=== PATIENT | male | born 1960 | race Caucasian/White ===

== ENCOUNTER 2017-12-05 19:18 | Observation (INO) ==
[2017-12-05] MEDS ORDERED: *HR* HYDROcodone/Acet 5/325 mg TABLET PO ONE (20:04)
[2017-12-05 20:57] LABS: Eosinophils % 1.2 %; Hemoglobin 11.5 g/dL (12.9-16.9); Lymphocytes % 18.1 %
[2017-12-05 20:59] LABS: Basophils # 0.1 K/mcL (0.0-0.2); Basophils % 0.7 %; Eosinophils # 0.1 K/mcL (0.0-0.6); Immature Granulocytes % 0.4 % (0-4); Immature Platelets 6.3 % (1.1-6.1); Lymphocytes # 1.5 K/mcL (0.6-4.6); Mean Corpuscular HGB Conc 34.8 g/dL (31.6-35.5); Mean Corpuscular Hemoglobin 31.2 pg (28.0-33.3); Mean Corpuscular Volume 89.4 fL (83.0-100.0); Mean Platelet Volume 11.5 fL (9.4-12.4); Monocytes # 0.8 K/mcL (0.0-1.3); Monocytes % 9.3 %; Red Blood Count 3.69 M/mcL (4.19-5.50); Red Cell Distribution Width 14.6 % (11.5-14.5); Segmented Neutrophils % 70.3 %
[2017-12-05 21:01] LABS: Platelet Count 51 K/mcL (140-400)
[2017-12-05 21:14] LABS: BUN/Creatinine Ratio 11 (6-26); Blood Urea Nitrogen 7 mg/dL (6-20); C-Reactive Protein 6 mg/L (Less than 10); Calcium 8.2 mg/dL (8.6-10.3); Carbon Dioxide 25 mEq/L (23-29); Chloride 102 mEq/L (98-107); Glucose 350 mg/dL (70-105); Osmolality,Calculated 286 (280-300); Potassium 3.5 mEq/L (3.5-5.1); Sodium 132 mEq/L (136-145); Uric Acid 2.6 mg/dL (2.3-7.6); eGFR For African Americans > 60 (> 60); eGFR For Non-African Americans > 60 (> 60)
[2017-12-05 21:16] LABS: Estimated Average Glucose 174 mg/dl; Hemoglobin A1C 7.7 %
--- NOTE | 2017-12-05 22:50 | Emergency Department Note ---
Disposition Clinical Impression: Right ankle swelling Right ankle pain Qualifiers: Chronicity: acute Qualified Code(s): M25.571 - Pain in right ankle and joints of right foot Cellulitis Qualifiers: Site of cellulitis: extremity Site of cellulitis of extremity: lower extremity Laterality: right Qualified Code(s): L03.115 - Cellulitis of right lower limb Disposition: Home, Self-Care Condition: Good Referrals: Woody Torres DO [Primary Care Provider] - Forms: ED Satisfaction Letter Time of Disposition: 23:03 Extremity Problem HPI - General Chief complaint: ED Extremity Injury, Lower Stated complaint: Right ankle pain Time Seen by Provider: 12/05/17 20:02 Source: patient Limitations: no limitations Nursing Notes Reviewed: Yes Vital Signs Reviewed: Yes - History of Present Illness Pt Subjective Complaint: extremity pain Onset (ago): day(s) (3) Consistency: Worsening Injury Location: right Pain Scale: 10 Quality: aching Radiation: none Improves with: nothing Worsens with: range of motion, weight bearing Associated symptoms: Reports: change in appearance, swelling, redness. Denies: chest pain, shortness of breath, back pain, bowel/bladder symptoms, fever Context: other (h/o of IDDM) - Related Data Home Medications Medication Instructions Recorded Confirmed Insulin ASPART [Novolog Flexpen] 12 unit SQ TIDWM 07/25/16 09/07/16 Insulin Glargine,Hum.rec.anlog 30 unit SQ HS 07/25/16 09/07/16 [Lantus Solostar] Allergies Allergy/AdvReac Type Severity Reaction Status Date / Time No Known Allergies Allergy Verified 12/25/15 19:50 All systems ED: reviewed and negative except as stated. Review of Systems: As Per HPI Constitutional: Denies: fever, chills, weakness Eyes: Denies: vision change ENT ED: Denies: throat pain Cardiovascular: Denies: chest pain, palpitations Respiratory: Denies: dyspnea Gastrointestinal: Denies: abdominal pain, nausea, vomiting Genitourinary: Denies: dysuria Musculoskeletal: Denies: back pain, neck pain Integumentary: Denies: rash Neurological: Denies: headache, weakness, numbness, paresthesias Endocrine: Denies: fatigue Hematological/Lymphatic: Denies: easy bleeding Allergic/Immunologic: Denies: facial swelling Past Medical History - Past Medical History Medical history: Reports: cancer, diabetes, other Surgical history: Reports: orthopedic, other, other Psychiatric history: Reports: no psych history - Social History Smoking Status: Never smoker Smokeless Tobacco Status: Yes (daily) Alcohol use: Reports: none Drug use: Reports: none Physical Exam - General Limitations: no limitations General appearance: alert, in no apparent distress - Head Head exam: normocephalic - Eye Eye exam: Present: EOMI. Absent: conjunctival injection - ENT ENT exam: mucous membranes moist - Neck Neck exam: Present: full ROM - Chest Chest inspection: Present: symmetric chest wall rise - Respiratory Respiratory exam: Absent: respiratory distress - Cardiovascular Cardiovascular exam: Present: normal rhythm - Abdominal Exam Abdominal exam: Present: soft, Non-Tender - Extremities Exam Extremities exam: Present: normal capillary refill - Expanded Lower Extremity Exam Hip/Pelvis exam: Present: full ROM Upper leg exam: Present: full ROM Knee exam: Present: normal inspection, full ROM, knee extension intact. Absent : tenderness, swelling Lower leg exam: Present: normal inspection, full ROM, Homans' sign, Achilles tendon intact Ankle exam: Present: full ROM, swelling (right), erythema (right). Absent: abrasion, laceration, deformity Foot/toe exam: Present: normal inspection, full ROM. Absent: tenderness at base of 5th metatarsal Neurovascular/Tendon exam: Absent: pulse deficit, motor deficit, sensory deficit , tendon deficit Gait: not tested/not observed - Back Exam Back exam: Present: full ROM - Neurological Exam Neurological exam: Present: alert - Psychiatric Psychiatric exam: Present: normal affect, normal mood - Skin Skin exam: Present: warm, dry, intact, normal color. Absent: rash, cyanosis, diaphoresis Course Course Narrative: 57yo IDDM2 male presents with complaint of atraumatic right ankle pain. He states his pain has been slowly worsening for the past 3 days, and today it was to the point where he is unable to bear weight. He does mention he was shoveling 4 days ago, but denies any twisting, direct trauma at that time. He denies any fevers, chills, numbness, tingling, history of gout. Patient seen and examined. Swellilng around right ankle, with erythema worse on medial aspect. No tenderness over base of fifth metatarsal. No noted deformity abrasions or lacerations. Normal distal pulses. Achilles intact, no calf pain. Pt has Pain and swelling that appears Atraumatic. Uric acid, Septic joint workup initiated, and imaging ordered. MRI reviewed, last A1c was 7.2 approx 6 months ago but 9.2% approx 1 year ago. will repeat tonight. analgesics ordered. - Reevaluation(s) Reevaluation #1: Patient was discussed with Dr. Hutson, who also had face time with patient, reviewed lab work. Concerning for cellulitis, due to patient's history of diabetes, he has advised for inpatient treatment IV antibiotics. We will plan for hospitalist admission. IV vanc and zosyn ordered Time: 23:00 Reevaluation #2: Pt discussed with and accepted by hospitalist Dr. Blank. Time: 23:25 Vital Signs Temperature 99.4 F 12/05/17 19:28 Pulse Rate 93 12/05/17 19:28 Respiratory Rate 18 12/05/17 19:28 Blood Pressure 125/72 12/05/17 19:28 O2 Sat by Pulse Oximetry 99 12/05/17 19:28 Temperature 99.4 F 12/05/17 19:28 Pulse Rate 82 12/05/17 23:46 Respiratory Rate 12 12/05/17 23:46 Blood Pressure 101/77 12/05/17 23:46 O2 Sat by Pulse Oximetry 99 12/05/17 23:46 Oxygen Delivery Oxygen Delivery Room Air Extremity Problem, [place] - [facility] Narrative Medical decision making narrative: Patient was discussed with Dr. Hutson, who also had face time with patient, and agreed with workup and disposition. 57-year-old male diabetic presents with atraumatic right ankle pain, pain, and erythema worsening over the past days. Workup concerning for cellulitis. IV abx started here, and patient was accessed did to hospitalist for inpatient management and further evaluation. Ankle X-Ray 12/05/17 20:02 IMPRESSION: Mild circumferential soft tissue swelling. No radiographic evidence of osteomyelitis. No acute fracture or dislocation. D/ / Nicholas Raya MD / Nicholas Raya MD Interpreting Provider: Nicholas Raya MD Laboratory Tests 12/05/17 12/05/17 12/05/17 20:29 20:29 20:29 WBC 8.5 RBC 3.69 L Hgb 11.5 L Hct 33.0 L MCV 89.4 MCH 31.2 MCHC 34.8 RDW 14.6 H Plt Count 51 L MPV 11.5 Immature Gran % 0.4 Seg Neutrophils % 70.3 Lymphocytes % 18.1 Monocytes % 9.3 Eosinophils % 1.2 Basophils % 0.7 Neutrophils # 6.0 Lymphocytes # 1.5 Monocytes # 0.8 Eosinophils # 0.1 Basophils # 0.1 Immature Plt Fraction 6.3 H ESR 27 H Sodium 132 L Potassium 3.5 Chloride 102 Carbon Dioxide 25 BUN 7 Creatinine 0.66 L Est GFR ( Amer) > 60 Est GFR (Non-Af Amer) > 60 BUN/Creatinine Ratio 11 Glucose 350 H Est Mean Plasma Glucose Hemoglobin A1c Calculated Osmolality 286 Lactic Acid Uric Acid 2.6 Calcium 8.2 L C-Reactive Protein 6 12/05/17 12/05/17 20:29 20:29 WBC RBC Hgb Hct MCV MCH MCHC RDW Plt Count MPV Immature Gran % Seg Neutrophils % Lymphocytes % Monocytes % Eosinophils % Basophils % Neutrophils # Lymphocytes # Monocytes # Eosinophils # Basophils # Immature Plt Fraction ESR Sodium Potassium Chloride Carbon Dioxide BUN Creatinine Est GFR ( Amer) Est GFR (Non-Af Amer) BUN/Creatinine Ratio Glucose Est Mean Plasma Glucose 174 Hemoglobin A1c 7.7 H Calculated Osmolality Lactic Acid 1.2 Uric Acid Calcium C-Reactive Protein - Lab Data Lab results reviewed: Yes I reviewed the patient's lab results. Result diagrams: 12/05/17 20:29 12/05/17 20:29 Lab Results 12/05/17 12/05/17 12/05/17 Range/Units 20:29 20:29 20:29 WBC 8.5 (4.3-11.1) K/mcL RBC 3.69 L (4.19-5.50) M/mcL Hgb 11.5 L (12.9-16.9) g/dL Hct 33.0 L (37.5-50.1) % MCV 89.4 (83.0-100.0) fL MCH 31.2 (28.0-33.3) pg MCHC 34.8 (31.6-35.5) g/dL RDW 14.6 H (11.5-14.5) % Plt Count 51 L (140-400) K/mcL MPV 11.5 (9.4-12.4) fL Immature Gran % 0.4 (0-4) % Seg Neutrophils % 70.3 % Lymphocytes % 18.1 % Monocytes % 9.3 % Eosinophils % 1.2 % Basophils % 0.7 % Neutrophils # 6.0 (1.6-8.9) K/mcL Lymphocytes # 1.5 (0.6-4.6) K/mcL Monocytes # 0.8 (0.0-1.3) K/mcL Eosinophils # 0.1 (0.0-0.6) K/mcL Basophils # 0.1 (0.0-0.2) K/mcL Immature Plt Fraction 6.3 H (1.1-6.1) % ESR 27 H (0-10) mm/hr Sodium 132 L (136-145) mEq/L Potassium 3.5 (3.5-5.1) mEq/L Chloride 102 (98-107) mEq/L Carbon Dioxide 25 (23-29) mEq/L BUN 7 (6-20) mg/dL Creatinine 0.66 L (0.70-1.30) mg/dL Est GFR ( Amer) > 60 (> 60) Est GFR (Non-Af Amer) > 60 (> 60) BUN/Creatinine Ratio 11 (6-26) Glucose 350 H (70-105) mg/dL Est Mean Plasma Glucose mg/dl Hemoglobin A1c ( - 5.6) % Calculated Osmolality 286 (280-300) Lactic Acid (0.5-2.2) mmol/L Uric Acid 2.6 (2.3-7.6) mg/dL Calcium 8.2 L (8.6-10.3) mg/dL C-Reactive Protein 6 (Less than 10) mg/L 12/05/17 12/05/17 Range/Units 20:29 20:29 WBC (4.3-11.1) K/mcL RBC (4.19-5.50) M/mcL Hgb (12.9-16.9) g/dL Hct (37.5-50.1) % MCV (83.0-100.0) fL MCH (28.0-33.3) pg MCHC (31.6-35.5) g/dL RDW (11.5-14.5) % Plt Count (140-400) K/mcL MPV (9.4-12.4) fL Immature Gran % (0-4) % Seg Neutrophils % % Lymphocytes % % Monocytes % % Eosinophils % % Basophils % % Neutrophils # (1.6-8.9) K/mcL Lymphocytes # (0.6-4.6) K/mcL Monocytes # (0.0-1.3) K/mcL Eosinophils # (0.0-0.6) K/mcL Basophils # (0.0-0.2) K/mcL Immature Plt Fraction (1.1-6.1) % ESR (0-10) mm/hr Sodium (136-145) mEq/L Potassium (3.5-5.1) mEq/L Chloride (98-107) mEq/L Carbon Dioxide (23-29) mEq/L BUN (6-20) mg/dL Creatinine (0.70-1.30) mg/dL Est GFR ( Amer) (> 60) Est GFR (Non-Af Amer) (> 60) BUN/Creatinine Ratio (6-26) Glucose (70-105) mg/dL Est Mean Plasma Glucose 174 mg/dl Hemoglobin A1c 7.7 H ( - 5.6) % Calculated Osmolality (280-300) Lactic Acid 1.2 (0.5-2.2) mmol/L Uric Acid (2.3-7.6) mg/dL Calcium (8.6-10.3) mg/dL C-Reactive Protein (Less than 10) mg/L - Radiology Data Radiology results reviewed: Yes I reviewed the patient's radiology results.
--- NOTE | 2017-12-05 23:28 | Internal Med History&Physical ---
Date of Encounter: 12/05/17 Time of Encounter: 23:26 Internal Medicine - H&P: HPI Chief complaint: ankle swelling Admitted From: Emergency Dept Plans for Post Hospital Care: Home History of present illness: Mr. Slade is a 57 year old male with diabetes, thrombocytopenia, hepatitis C,, arthritis, septic right elbow is in 2016 status post arthrotomy with lavage who presents with pain, swelling, redness in the right ankle area that has been going on for about 3 days or so. Has been worsening. No trauma. He has not been able to her weight on it. Denies any fevers or chills. Labs were done in the ED that showed no leukocytosis and platelets were 51 which is consistent with his known thrombocytopenia. Sodium was 132. Normal kidney function. Glucose elevated at 350. A1c was 7.7. Uric acid and CRP and ESR were checked with only ESR mildly elevated at 27. An x-ray of the right ankle was checked which showed soft tissue swelling with no evidence was to mellitus. Given the patient's history of previous septic joint, the ED felt that the patient needed to be admitted for IV antibiotics. He was given IV Zosyn and vancomycin in the ED. Denies headache, blurry vision, chest pain, shortness breath, abdominal pain, diarrhea, constipation, urinary symptoms, or neurological symptoms. Past Med Surg Social Fam HX - Past Medical History Medical history: cancer, diabetes, other Additional medical history: liver cirrhosis Psychiatric history: no psych history - Past Surgical History Surgical History: orthopedic, other, other Additional surgical history: elbow surgery and eye surgery, colonoscopy - Social History Smoking Status: Never smoker Smokeless Tobacco Status: Yes (daily) Alcohol use: none Drug use: none - Family History Mother Adopted: No Family Member Ethnicity: Non- Living Status: Still Living Hx Family Cardiac Disorders: No Hx Family Respiratory Disorders: Yes (sleep apnea) Hx Family Cancer: No Hx Family GI Disorders: Yes (hernia) Hx Family Endocrine Disorder: Yes (diabetic) Hx Family Neuromuscular Disorders: No Hx Family Neurologic Disorders: No Hx Family HEENT Disorders: No Hx Family Autoimmune Disorders: No Internal Medicine - H&P: Meds metFORMIN [Glucophage] 500 mg PO TID 12/04/15 [History] Aspirin [Lo-Dose Aspirin EC] 81 mg PO DAILY 06/16/16 [History] Lisinopril [Zestril] 2.5 mg PO DAILY 06/16/16 [History] OxyCODONE Immed Rel [Roxicodone 5 MG] 5 mg PO BID PRN #60 tablet 06/16/16 [Rx] Glucagon,Human Recombinant [Glucagon Emergency Kit] 1 mg IJ AD 07/25/16 [History ] Insulin ASPART [Novolog Flexpen] 12 unit SQ TIDWM 07/25/16 [History] Insulin Glargine,Hum.rec.anlog [Lantus Solostar] 30 unit SQ HS 07/25/16 [History ] Gabapentin [Neurontin] 600 mg PO HS 09/07/16 [History] Promethazine [Phenergan] 12.5 mg PO Q8HR #90 tablet 01/17/17 [Rx] Sennosides/Docusate Sodium [Senna-S Tablet] 1 each PO DAILY #30 tablet 01/17/17 [Rx] 3 Allergy/AdvReac Type Severity Reaction Status Date / Time No Known Allergies Allergy Verified 12/25/15 19:50 All Systems PM: A 10-system review of systems was performed and is negative for pertinent findings except as documented above in the HPI. Review of systems: All systems reviewed are negative except for as mentioned above - Constitutional Vitals: Temp Pulse Resp BP Pulse Ox 99.4 F 93 18 125/72 99 12/05/17 19:28 12/05/17 19:28 12/05/17 19:28 12/05/17 19:28 12/05/17 19:28 Exam: GEN: NAD HEENT: AT, NC, No cyanosis, oral mucosa is moist, No JVD Lymphatics: No lymphadenoapthy Eyes: Extrocular muscles intact, anicteric CVS:RRR. S1, S2, No m/r/g RESP: CTAB ABD: Soft, NT, ND, +BS EXT: Right ankle swelling and erythema with tenderness to palpation noted., No rashes, 2+ DP NEURO: Nonfocal, CN II-XII intact, No focal motor or sensory deficits Psych: Cooperative, Not anxious or depressed Internal Med - H&P Results - Labs CBC & Chem 7: 12/05/17 20:29 12/05/17 20:29 Labs: Short CBC 12/05/17 Range/Units 20:29 WBC 8.5 (4.3-11.1) K/mcL Hgb 11.5 L (12.9-16.9) g/dL Hct 33.0 L (37.5-50.1) % Plt Count 51 L (140-400) K/mcL Neutrophils # 6.0 (1.6-8.9) K/mcL BMP 12/05/17 20:29 Sodium 132 L Potassium 3.5 Chloride 102 Carbon Dioxide 25 BUN 7 Creatinine 0.66 L Glucose 350 H Calcium 8.2 L - Impressions ITS Impressions Ankle X-Ray 12/05/17 20:02 IMPRESSION: Mild circumferential soft tissue swelling. No radiographic evidence of osteomyelitis. No acute fracture or dislocation. D/ / Nicholas Raya MD / Nicholas Raya MD Interpreting Provider: Nicholas Raya MD - Assessment and plan (1) Cellulitis Current Visit: Yes Status: Acute Assessment and plan: We will place patient on IV vancomycin for now. Follow-up on blood cultures. We will annmarie the area to monitor progress. Qualifiers: Site of cellulitis: extremity Site of cellulitis of extremity: lower extremity Laterality: right Qualified Code(s): L03.115 - Cellulitis of right lower limb (2) HTN (hypertension) Current Visit: Yes Status: Acute Assessment and plan: We will resume the patient on his home antihypertensives. Qualifiers: Hypertension type: essential hypertension Qualified Code(s): I10 - Essential (primary) hypertension (3) Thrombocytopenia Current Visit: No Status: Acute Assessment and plan: Chronic. We will monitor. (4) Diabetes Current Visit: No Status: Chronic Assessment and plan: We will place the patient on insulin sliding scale and home basal insulin. Accu -Cheks. Qualifiers: Diabetes mellitus type: type 2 Diabetes mellitus equipment operator intermodal yard insulin use: without equipment operator intermodal yard use Diabetes mellitus complication status: without complication Qualified Code(s): E11.9 - Type 2 diabetes mellitus without complications (5) DVT prophylaxis Current Visit: No Status: Acute Assessment and plan: SCDs - Time Spent With Patient Total time spent is greater than 50% in coordination of care (as documented) at patient's floor/unit and/or counseling patient:
[2017-12-05] MEDS ORDERED: Piperacillin/Tazobactam 3.375 GM in 0.9 % Sodium Chloride Mini Bag 100 ML IVPB ONE (23:29)
[2017-12-05] MEDS ORDERED: *HR* Dextrose 50 % in Water (Syg) 50 ML SYRINGE IVP PRN (23:43)
[2017-12-05] MEDS ORDERED: D5% in Water 1,000 ML IVC PRN (23:43)
[2017-12-05] MEDS ORDERED: Dextrose Gel 15 GM/37.5 ML TUBE PO PRN ×2 (23:43)
[2017-12-05] MEDS ORDERED: Naloxone 0.4 MG/ML INJ IVP PRN (23:44)
[2017-12-05] MEDS ORDERED: Acetaminophen 325 MG TABLET PO PRN (23:44)
[2017-12-06] MEDS: *HR* OxyCODONE Immed Rel 5 MG TABLET PO PRN ×3 (00:16→19:14)
[2017-12-06 04:37] LABS: Basophils # 0.1 K/mcL (0.0-0.2); Basophils % 0.8 %; Eosinophils # 0.3 K/mcL (0.0-0.6); Eosinophils % 3.6 %; Hematocrit 30.3 % (37.5-50.1); Hemoglobin 10.5 g/dL (12.9-16.9); Immature Granulocytes % 0.4 % (0-4); Immature Platelets 6.7 % (1.1-6.1); Lymphocytes # 1.8 K/mcL (0.6-4.6); Lymphocytes % 24.5 %; Mean Corpuscular HGB Conc 34.7 g/dL (31.6-35.5); Mean Corpuscular Volume 89.4 fL (83.0-100.0); Mean Platelet Volume 12.1 fL (9.4-12.4); Monocytes # 0.7 K/mcL (0.0-1.3); Monocytes % 10.3 %; Red Blood Count 3.39 M/mcL (4.19-5.50); Red Cell Distribution Width 14.6 % (11.5-14.5); Segmented Neutrophils % 60.4 %
[2017-12-06 04:39] LABS: Neutrophils # 4.4 K/mcL (1.6-8.9); Platelet Count 42 K/mcL (140-400)
[2017-12-06 04:48] LABS: BUN/Creatinine Ratio 13 (6-26); Blood Urea Nitrogen 8 mg/dL (6-20); Calcium 7.6 mg/dL (8.6-10.3); Carbon Dioxide 27 mEq/L (23-29); Chloride 104 mEq/L (98-107); Glucose 305 mg/dL (70-105); Magnesium 1.6 mg/dL (1.6-2.6); Osmolality,Calculated 288 (280-300); Potassium 3.4 mEq/L (3.5-5.1); Sodium 134 mEq/L (136-145); eGFR For African Americans > 60 (> 60); eGFR For Non-African Americans > 60 (> 60)
[2017-12-06] MEDS: Insulin LISPRO 300 UNITS/3 ML VIAL SQ SCH ×4 (08:34→21:23)
[2017-12-06] MEDS ORDERED: Potassium Chloride 40 MEQ, Lidocaine 1% 2 ML in D5% in Water 500 ML IVPB ONE (10:13)
--- NOTE | 2017-12-06 12:30 | Internal Med Progress Note ---
Date of Encounter: 12/06/17 Time of Encounter: 10:15 - Assessment and plan (1) Cellulitis Current Visit: Yes Status: Acute Assessment and plan: Possible etiology could be community acquired MRSA, Staphylococcus aureus or streptococcus. Gram-negative organisms are slightly. Plan Continue broad-spectrum antibody coverage with vancomycin and Zosyn Follow cultures sent from the ED Qualifiers: Site of cellulitis: extremity Site of cellulitis of extremity: lower extremity Laterality: right Qualified Code(s): L03.115 - Cellulitis of right lower limb (2) Diabetes Current Visit: No Status: Chronic Assessment and plan: We will place the patient on insulin sliding scale and home basal insulin. Accu -Cheks. Blood sugar is high but he did not receive basal coverage last night. 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 Likely related to liver disease. (4) HTN (hypertension) Current Visit: Yes Status: Acute Assessment and plan: We will resume the patient on his home antihypertensives. Qualifiers: Hypertension type: essential hypertension Qualified Code(s): I10 - Essential (primary) hypertension (5) Hepatitis C infection Current Visit: Yes Status: Chronic Qualifiers: Qualified Code(s): B19.20 - Unspecified viral hepatitis C without hepatic coma (6) Cirrhosis Current Visit: Yes Status: Chronic Qualifiers: Qualified Code(s): K74.60 - Unspecified cirrhosis of liver (7) DVT prophylaxis Current Visit: No Status: Acute Assessment and plan: SCDs - Time Spent With Patient Total time spent is greater than 50% in coordination of care (as documented) at patient's floor/unit and/or counseling patient: 25 - 35 minutes - Subjective Interval history: Still concern about swelling and erythema of the right ankle. No new complaints. - Constitutional Vitals: Temp Pulse Resp BP Pulse Ox 97.9 F 76 16 121/71 99 12/06/17 11:26 12/06/17 11:26 12/06/17 11:26 12/06/17 11:26 12/06/17 11:26 Exam: Physical exam Gen: Comfortable, laying in bed, in no visible distress HEENT: Normocephalic, atraumatic. No conjunctival icterus. Moist oral mucosa. Neck: Supple Lungs: Clear to auscultation, no foreign sounds Heart: Normal S1-S2, no murmurs rubs or gallops Abdomen: Normoactive bowel sounds, no guarding rigidity or tenderness Extremities: No edema clubbing or cyanosis Neuro: Alert oriented 3, no focal deficits Skin: Right ankle edema and erythema at the medial malleolus area site was marked Internal Medicine: Result - Labs CBC & Chem 7: 12/06/17 03:53 12/06/17 03:53 Labs: Short CBC 12/06/17 Range/Units 03:53 WBC 7.2 (4.3-11.1) K/mcL Hgb 10.5 L (12.9-16.9) g/dL Hct 30.3 L (37.5-50.1) % Plt Count 42 L (140-400) K/mcL Neutrophils # 4.4 (1.6-8.9) K/mcL BMP 12/06/17 03:53 Sodium 134 L Potassium 3.4 L Chloride 104 Carbon Dioxide 27 BUN 8 Creatinine 0.60 L Glucose 305 H Calcium 7.6 L Consult Discharge Plan - Plan Referrals: Woody Torres DO [Primary Care Provider] -
[2017-12-06] MEDS: Piperacillin/Tazobactam 3.375 GM in 0.9 % Sodium Chloride Mini Bag 100 ML IVPB SCH ×2 (14:20→21:24)
[2017-12-06] MEDS: Insulin DETEMIR 100 UNIT/ML X5UNITS SQ SCH (15:11)
[2017-12-06] MEDS ORDERED: Piperacillin/Tazobactam 3.375 GM in 0.9 % Sodium Chloride Mini Bag 100 ML IVPB ONE (23:00)
[2017-12-07] MEDS: *HR* OxyCODONE Immed Rel 5 MG TABLET PO PRN ×4 (01:35→20:26)
[2017-12-07] MEDS: Piperacillin/Tazobactam 3.375 GM in 0.9 % Sodium Chloride Mini Bag 100 ML IVPB SCH ×3 (05:06→19:58)
[2017-12-07 07:00] LABS: Immature Granulocytes % 0.5 % (0-4); Red Blood Count 3.55 M/mcL (4.19-5.50)
[2017-12-07 07:02] LABS: Basophils # 0.1 K/mcL (0.0-0.2); Basophils % 0.8 %; Eosinophils # 0.2 K/mcL (0.0-0.6); Eosinophils % 3.2 %; Hematocrit 31.9 % (37.5-50.1); Hemoglobin 10.8 g/dL (12.9-16.9); Lymphocytes % 17.4 %; Mean Corpuscular HGB Conc 33.9 g/dL (31.6-35.5); Mean Corpuscular Hemoglobin 30.4 pg (28.0-33.3); Mean Corpuscular Volume 89.9 fL (83.0-100.0); Mean Platelet Volume 11.2 fL (9.4-12.4); Monocytes # 0.6 K/mcL (0.0-1.3); Monocytes % 10.6 %; Neutrophils # 4.1 K/mcL (1.6-8.9); Red Cell Distribution Width 14.5 % (11.5-14.5); Segmented Neutrophils % 67.5 %
[2017-12-07 07:11] LABS: Platelet Count 48 K/mcL (140-400)
[2017-12-07 07:22] LABS: BUN/Creatinine Ratio 11 (6-26); Blood Urea Nitrogen 7 mg/dL (6-20); Calcium 7.7 mg/dL (8.6-10.3); Carbon Dioxide 26 mEq/L (23-29); Chloride 105 mEq/L (98-107); Glucose 88 mg/dL (70-105); Magnesium 1.5 mg/dL (1.6-2.6); Osmolality,Calculated 277 (280-300); Potassium 3.6 mEq/L (3.5-5.1); Sodium 135 mEq/L (136-145); eGFR For African Americans > 60 (> 60); eGFR For Non-African Americans > 60 (> 60)
[2017-12-07] MEDS: Insulin LISPRO 300 UNITS/3 ML VIAL SQ SCH ×4 (07:54→21:10)
--- NOTE | 2017-12-07 09:48 | Internal Med Progress Note ---
Date of Encounter: 12/07/17 Time of Encounter: 10:00 - Assessment and plan (1) Cellulitis Current Visit: Yes Status: Acute Assessment and plan: Possible etiology could be community acquired MRSA, Staphylococcus aureus or streptococcus. Gram-negative organisms are slightly. Plan Continue broad-spectrum antibiotic coverage with vancomycin and Zosyn. Will consider deescalating tomorrow. Rash has not changed much, neither has swelling Follow cultures sent from the ED Qualifiers: Site of cellulitis: extremity Site of cellulitis of extremity: lower extremity Laterality: right Qualified Code(s): L03.115 - Cellulitis of right lower limb (2) Diabetes Current Visit: No Status: Chronic Assessment and plan: We will place the patient on insulin sliding scale and home basal insulin. Accu -Cheks. Blood sugar is high but he did not receive basal coverage last night. 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 Likely related to liver disease. (4) HTN (hypertension) Current Visit: Yes Status: Acute Assessment and plan: We will resume the patient on his home antihypertensives. Qualifiers: Hypertension type: essential hypertension Qualified Code(s): I10 - Essential (primary) hypertension (5) Hepatitis C infection Current Visit: Yes Status: Chronic Qualifiers: Qualified Code(s): B17.10 - Acute hepatitis C without hepatic coma (6) Cirrhosis Current Visit: Yes Status: Chronic Qualifiers: Qualified Code(s): K74.60 - Unspecified cirrhosis of liver (7) DVT prophylaxis Current Visit: No Status: Acute Assessment and plan: SCDs - Time Spent With Patient Total time spent is greater than 50% in coordination of care (as documented) at patient's floor/unit and/or counseling patient: 25 - 35 minutes - Subjective Interval history: No significant interval changes in his swelling or erythema of the right ankle .No new complaints. - Constitutional Vitals: Temp Pulse Resp BP Pulse Ox 97.8 F 85 16 124/73 98 12/07/17 06:52 12/07/17 06:52 12/07/17 06:52 12/07/17 06:52 12/07/17 06:52 Exam: Physical exam Gen: Comfortable, laying in bed, in no visible distress HEENT: Normocephalic, atraumatic. No conjunctival icterus. Moist oral mucosa. Neck: Supple Lungs: Clear to auscultation, no foreign sounds Heart: Normal S1-S2, no murmurs rubs or gallops Abdomen: Normoactive bowel sounds, no guarding rigidity or tenderness Extremities: No edema clubbing or cyanosis Neuro: Alert oriented 3, no focal deficits Skin: Right ankle edema and erythema at the medial malleolus area site was marked Internal Medicine: Result - Labs CBC & Chem 7: 12/07/17 06:33 12/07/17 06:33 Labs: Short CBC 12/07/17 Range/Units 06:33 WBC 6.0 (4.3-11.1) K/mcL Hgb 10.8 L (12.9-16.9) g/dL Hct 31.9 L (37.5-50.1) % Plt Count 48 L (140-400) K/mcL Neutrophils # 4.1 (1.6-8.9) K/mcL BMP 12/07/17 06:33 Sodium 135 L Potassium 3.6 Chloride 105 Carbon Dioxide 26 BUN 7 Creatinine 0.65 L Glucose 88 Calcium 7.7 L Consult Discharge Plan - Plan Referrals: Woody Torres DO [Primary Care Provider] -
[2017-12-07] MEDS: Insulin DETEMIR 100 UNIT/ML X5UNITS SQ SCH (20:26)
[2017-12-08] MEDS: *HR* OxyCODONE Immed Rel 5 MG TABLET PO PRN ×2 (03:55→12:32)
[2017-12-08] MEDS: Piperacillin/Tazobactam 3.375 GM in 0.9 % Sodium Chloride Mini Bag 100 ML IVPB SCH ×2 (03:58→12:45)
[2017-12-08 04:43] LABS: Basophils # 0.1 K/mcL (0.0-0.2); Basophils % 1.1 %; Eosinophils # 0.3 K/mcL (0.0-0.6); Eosinophils % 3.9 %; Hematocrit 30.7 % (37.5-50.1); Hemoglobin 10.4 g/dL (12.9-16.9); Immature Granulocytes % 0.3 % (0-4); Immature Platelets 6.4 % (1.1-6.1); Lymphocytes # 1.3 K/mcL (0.6-4.6); Lymphocytes % 20.8 %; Mean Corpuscular HGB Conc 33.9 g/dL (31.6-35.5); Mean Corpuscular Hemoglobin 29.9 pg (28.0-33.3); Mean Corpuscular Volume 88.2 fL (83.0-100.0); Mean Platelet Volume 11.4 fL (9.4-12.4); Monocytes % 10.1 %; Neutrophils # 4.1 K/mcL (1.6-8.9); Red Blood Count 3.48 M/mcL (4.19-5.50); Red Cell Distribution Width 14.5 % (11.5-14.5); Segmented Neutrophils % 63.8 %
[2017-12-08 04:47] LABS: Monocytes # 0.7 K/mcL (0.0-1.3); Platelet Count 54 K/mcL (140-400)
[2017-12-08 05:03] LABS: BUN/Creatinine Ratio 12 (6-26); Blood Urea Nitrogen 7 mg/dL (6-20); Calcium 7.4 mg/dL (8.6-10.3); Carbon Dioxide 26 mEq/L (23-29); Chloride 105 mEq/L (98-107); Glucose 162 mg/dL (70-105); Osmolality,Calculated 278 (280-300); Potassium 3.3 mEq/L (3.5-5.1); Sodium 133 mEq/L (136-145); eGFR For African Americans > 60 (> 60); eGFR For Non-African Americans > 60 (> 60)
[2017-12-08] MEDS: Insulin LISPRO 300 UNITS/3 ML VIAL SQ SCH ×2 (08:02→12:43)
--- NOTE | 2017-12-08 13:45 | Discharge Summary ---
<Adan Mullen - Last Filed: 12/08/17 14:03> Date of Encounter: 12/08/17 Time of Encounter: 08:15 - Discharge Diagnosis (1) Cellulitis Priority: Primary Status: Acute Qualifiers: Site of cellulitis: extremity Site of cellulitis of extremity: lower extremity Laterality: right Qualified Code(s): L03.115 - Cellulitis of right lower limb (2) Diabetes Priority: Secondary Status: Chronic Qualifiers: Diabetes mellitus type: type 2 Diabetes mellitus termite treater helper insulin use: without care home use Diabetes mellitus complication status: without complication Qualified Code(s): E11.9 - Type 2 diabetes mellitus without complications (3) Thrombocytopenia Priority: Secondary Status: Acute (4) HTN (hypertension) Priority: Secondary Status: Acute Qualifiers: Hypertension type: essential hypertension Qualified Code(s): I10 - Essential (primary) hypertension (5) Hepatitis C infection Priority: Secondary Status: Chronic (6) DVT prophylaxis Priority: Secondary Status: Acute (7) Cirrhosis Priority: Secondary Status: Chronic Qualifiers: Qualified Code(s): K74.60 - Unspecified cirrhosis of liver Hospital course: Mr. Slade is a 57 year old male with past medical history of type 2 Diabetes, Hep C, chronic thrombocytopenia, who was admitted for worsening right ankle swelling and erythema, non-traumatic, has had septic joint in the right elbow in the past that required arthrotomy/lavage. Patient was started on vancomycin and zosyn. Initial margins encompassed a 12cm by 11cm area over the medial malleolus. Margins and swelling reduced substantially over the hospital course. Podiatry was consulted today 12/08 regarding follow-up care. Plan is to have an outpatient appointment after 10 more days of PO Augmentin. He is stable for discharge today. Discharge discussed with: patient - Time Spent with Patient Total time spent providing and/or coordinating discharge services: Greater than 30 minutes - Discharge Medications Prescriptions: Amoxicillin/Clavulanate [Augmentin] 500 mg PO BIDWM 10 Days #20 tablet Home Medications: Insulin ASPART [Novolog Flexpen] 12 unit SQ TIDWM 07/25/16 [History] Insulin Glargine,Hum.rec.anlog [Basaglar Kwikpen U-100] 30 unit SQ HS 12/06/17 [ History] Amoxicillin/Clavulanate [Augmentin] 500 mg PO BIDWM 10 Days #20 tablet 12/08/17 [Rx] Allergies/Adverse Reactions: 3 Allergy/AdvReac Type Severity Reaction Status Date / Time No Known Allergies Allergy Verified 12/06/17 09:14 Date of admission: 12/06/17 00:44 Primary care physician: Woody Torres DO Consults: 12/08/17 09:49 Consult to Podiatry [CONS] Routine Consulting Provider: Pod[facility] Reason for Consult: admitted 12/05, R medial ankle cellulitis, on vanc/zosyn since admission, 20% improved margins, reduced swelling, no joint aspiration performed (bld culture prelim no growth so far), interested in possible discharge later this afternoon, de-escalate abx to Augmentin, with outpatient follow-up with Dr. Hernandez, thank you. Call Completed: Yes Discharging clinician: Adan Mullen Anticipated date of discharge: 12/08/17 - Constitutional Vitals: Temp Pulse Resp BP Pulse Ox 98.1 F 82 16 142/79 99 12/08/17 10:36 12/08/17 10:36 12/08/17 10:36 12/08/17 10:36 12/08/17 10:36 General appearance: Present: A&O X 3, no acute distress - Head Head exam: Present: atraumatic, normal inspection - Eye Eye exam: Present: EOMI, sclera anicteric - ENT ENT exam: Present: mucous membranes moist - Neck Neck exam general surgery: Present: full ROM. Absent: lymphadenopathy - Respiratory Respiratory exam: Present: CTAB. Absent: accessory muscle use - Cardiovascular Cardiovascular exam: Present: RRR. Absent: JVD, systolic murmur, tachycardia - GI/Abdominal GI/Abdominal exam: Absent: distended, firm, guarding - Extremities Exam Additional comments: Erythematous area measuring approximately 9cm by 8cm (80% of area of initial margins); no fluctuance or induration, trace swelling - Psychiatric Psychiatric exam: Present: normal affect, normal mood - Skin Additional comments: per extremities exam - Patient Status Disposition: Home, Self-Care Condition: Good Functional capacity at discharge: independent ambulation Overall status at discharge: patient is progressing back to baseline - Discharge Instructions Follow Up With: Cecelia Blakely WATCH DIAL PRINTER [Advanced Practice Nurse] - 12/15/17 9:00 am Bryon Hernandez DPM [Partnered Physician] - - Diet and Activity Activity: increase activity as tolerated Diet: advance to your usual diet - VTE Documentation of Mechanical Device: Intermittent pneumatic compression device <Khari Kan - Last Filed: 12/08/17 14:14> Date of Encounter: 12/08/17 - Discharge Diagnosis (1) Diabetes Status: Chronic Qualifiers: Diabetes mellitus type: type 2 Diabetes mellitus care home insulin use: without care home use Diabetes mellitus complication status: without complication Qualified Code(s): E11.9 - Type 2 diabetes mellitus without complications (2) Thrombocytopenia Status: Acute (3) DVT prophylaxis Status: Acute (4) Cellulitis Status: Acute Qualifiers: Site of cellulitis: extremity Site of cellulitis of extremity: lower extremity Laterality: right Qualified Code(s): L03.115 - Cellulitis of right lower limb (5) HTN (hypertension) Status: Acute Qualifiers: Hypertension type: essential hypertension Qualified Code(s): I10 - Essential (primary) hypertension (6) Hepatitis C infection Status: Chronic Qualifiers: Qualified Code(s): B19.20 - Unspecified viral hepatitis C without hepatic coma (7) Cirrhosis Status: Chronic Qualifiers: Qualified Code(s): K74.60 - Unspecified cirrhosis of liver Hospital course: Mr. Slade is a 57 year old male - Time Spent with Patient Total time spent providing and/or coordinating discharge services: Date of admission: 12/06/17 00:44 Primary care physician: Woody Torres DO Consults: 12/08/17 09:49 Consult to Podiatry [CONS] Routine Consulting Provider: Podiatry [facility] Reason for Consult: admitted 12/05, R medial ankle cellulitis, on vanc/zosyn since admission, 20% improved margins, reduced swelling, no joint aspiration performed (bld culture prelim no growth so far), interested in possible discharge later this afternoon, de-escalate abx to Augmentin, with outpatient follow-up with Dr. Hernandez, thank you. Call Completed: Yes - Constitutional Vitals: Temp Pulse Resp BP Pulse Ox 98.1 F 82 16 142/79 99 12/08/17 10:36 12/08/17 10:36 12/08/17 10:36 12/08/17 10:36 12/08/17 10:36 - Attending Attestation I examined this patient and my medical decision-making was reviewed with the Resident Physician Dr. Mullen. I agree with the documented findings, disposition and treatment plan as described except to the extent set forth below. Mr. Slade is a 57 year old male with past medical history of type 2 Diabetes, Hep C, chronic thrombocytopenia, who was admitted for worsening right ankle swelling and erythema. Pt was admitted here and started him on empirical abx Zosyn and Vancomycin. His cellulites improved now. Flasher Adjuster evaluated the pt and recommend to cont PO abx and f/u with them as an out pt. So will d/c him home today in stable condition. Gen: A, A, O x 3 Chest: Diminished BS b/l Ext: Improving erythema Rt ankle.. still has mild swelling in rt ankle.
[2017-12-08 14:28] VITALS: BP 120/64
[2017-12-08] MEDS ORDERED: Aminoglycoside Consult 1 EACH MC ONE (15:49)
--- NOTE | 2017-12-08 17:51 | Podiatry Consult Note ---
Date of Encounter: 12/08/17 Time of Encounter: 12:30 Assessment and Plan (1) Cellulitis Status: Acute Assessment #1: Cellulitis of the right foot secondary to likely trauma ecchymosis secondary to overuse complicated by diabetes #2: No evidence of septic ankle #3 no evidence of tendon rupture of the right foot or ankle #4: No clinical evidence of ulceration or abscess. Plan: #1 recommend post discharge by mouth antibiotics for a period of 10-14 days #2 daily cleansing of the right foot and ankle with mild soap and warm water dry clean sock daily inspection of the skin with observation for complications #3 we will follow up patient in clinic in 14 days postdischarge Qualifiers: Site of cellulitis: extremity Site of cellulitis of extremity: lower extremity Laterality: right Qualified Code(s): L03.115 - Cellulitis of right lower limb History of Present Illness Chief complaint: Red swollen right ankle HPI: Mr. Slade is a 57 year old male, admitted for cellulitis of the right foot and leg. Patient states he was using a shovel one week ago which she had not done several years. He noticed within 24-48 hours of using a shovel that he had increased swelling and discoloration of his right foot. Then by Monday he no significant increase in redness or swelling and pain presented to the ED has been admitted since that time on intravenous antibiotics concern for septic joint. He presents with no fever chills nausea vomiting today no chest pain no shortness of breath. Past Med Surg Social Fam HX - Past Medical History Medical history: cancer, cirrhosis, diabetes, other Additional medical history: Liver Cancer, thrombocytopenia Psychiatric history: no psych history - Past Surgical History Surgical History: orthopedic, other, other Additional surgical history: elbow surgery and eye surgery, colonoscopy - Social History Smoking Status: Never smoker Smokeless Tobacco Status: Yes (daily) Alcohol use: none Drug use: marijuana - Family History Father Living Status: Age at : 54 Cause of : Brain Cancer Hx Family Cancer: Yes Mother Adopted: No Family Member Ethnicity: Non- Living Status: Still Living Hx Family Cardiac Disorders: No Hx Family Respiratory Disorders: Yes (sleep apnea) Hx Family Cancer: No Hx Family GI Disorders: Yes (hernia) Hx Family Endocrine Disorder: Yes (DM) Hx Family Neuromuscular Disorders: No Hx Family Neurologic Disorders: No Hx Family HEENT Disorders: No Hx Family Autoimmune Disorders: No Medications and Allergies Insulin ASPART [Novolog Flexpen] 12 unit SQ TIDWM 07/25/16 [History] Insulin Glargine,Hum.rec.anlog [Basaglar Kwikpen U-100] 30 unit SQ HS 12/06/17 [ History] Amoxicillin/Clavulanate [Augmentin] 500 mg PO BIDWM 10 Days #20 tablet 12/08/17 [Rx] 3 Allergy/AdvReac Type Severity Reaction Status Date / Time No Known Allergies Allergy Verified 12/06/17 09:14 All Systems Reviewed: The remainder of the systems were reviewed and are negative. No chest pain nausea vomiting fever chills today. No bladder or bladder dysfunction. Patient does complain of some tingling and numbness of both feet and legs secondary to his history of diabetes Physical Exam - Constitutional Vitals: Temp Pulse Resp BP Pulse Ox 98.2 F 82 16 120/64 98 12/08/17 14:10 12/08/17 14:10 12/08/17 14:10 12/08/17 14:10 12/08/17 14:10 General appearance: average body habitus, cooperative, no acute distress - Expanded Lower Extremities Exam Foot/Toe exam: Present: calcaneal tenderness (Patient with non-blanchable erythema of the medial aspect of the right calcaneus and ankle approximately 8 cm in length 7 cm in width. No fluctuance. Tenderness to deep palpation only. No evidence of necrosis. No evidence of skin compromise. Exhibits a complete range of motion of the ankle and foot without pain or crepitus active and passive with without resistance. Patient can plantar flex all digits without difficulty. He can invert his foot without difficulty.) Neuro vascular tendon exam: Present: no vascular compromise (Pedal pulses are palpable. DP and PT. Skin is warm to touch capillary rebound time is immediate to the great toe.) - Psychiatric Psychiatric exam: Present: normal mood - Skin Skin exam: Present: erythema (Medial right ankle and heel) - Vascular Capillary Refill: less than 3 seconds Lower Extremity Vascular: no vascular compromise - Ankle & Foot Effusion grade ankle exam: grade 1 Full ROM ankle: yes ROM: dorsiflexion: normal ROM: plantarflexion: normal ROM: eversion: normal ROM: first MTP joint flexion: normal ROM: first MTP joint extension: normal Strength: dorsiflexion: 5/5 Strength: plantarflexion: 5/5 Strength: inversion: 5/5 Strength: eversion: 5/5 Strength: toe extension: 5/5 Strength: toe flexion: 5/5 Instability: anterior drawer: negative Tests: achilles rupture tests: negative, DVT tests: negative, Tinel's sign at sural nerve: negative, Tinel's sign at tarsal tunnel: negative Results - Labs Result Diagrams: 12/08/17 03:51 12/08/17 03:51 Labs: Abnormal lab results RBC 3.48 M/mcL (4.19-5.50) L 12/08/17 03:51 Hgb 10.4 g/dL (12.9-16.9) L 12/08/17 03:51 Hct 30.7 % (37.5-50.1) L 12/08/17 03:51 Plt Count 54 K/mcL (140-400) L 12/08/17 03:51 Immature Plt Fraction 6.4 % (1.1-6.1) H 12/08/17 03:51 ESR 27 mm/hr (0-10) H 12/05/17 20:29 Sodium 133 mEq/L (136-145) L 12/08/17 03:51 Potassium 3.3 mEq/L (3.5-5.1) L 12/08/17 03:51 Creatinine 0.60 mg/dL (0.70-1.30) L 12/08/17 03:51 Glucose 162 mg/dL (70-105) H 12/08/17 03:51 POC Glucose 242 mg/dL (70-99) H 12/08/17 11:10 Hemoglobin A1c 7.7 % (-5.6) H 12/05/17 20:29 Calculated Osmolality 278 (280-300) L 12/08/17 03:51 Calcium 7.4 mg/dL (8.6-10.3) L 12/08/17 03:51 Magnesium 1.5 mg/dL (1.6-2.6) L 12/07/17 06:33 H & H 12/08/17 Range/Units 03:51 Hgb 10.4 L (12.9-16.9) g/dL Hct 30.7 L (37.5-50.1) % All other labs normal. Consult Discharge Plan - Plan Referrals: Bryon Hernandez DPM [Partnered Physician] - 12/19/17 1:30 pm Cecelia Blakely CNP [Advanced Practice Nurse] - 12/15/17 9:00 am Prescriptions: Amoxicillin/Clavulanate [Augmentin] 500 mg PO BIDWM 10 Days #20 tablet
== END 2017-12-08 15:50 | disposition home or self-care (01) ==
LOC: 3ANU 19:18 → EMEROO 19:18 → SUATTDRO 12-06 00:44 → 3ANU 12-06 01:20
PROVIDERS: ADMIT Internal Medicine; ATTEND Family Medicine

== ENCOUNTER 2017-12-15 16:07 | Inpatient (IN) ==
--- NOTE | 2017-12-15 17:03 | Emergency Department Note ---
Disposition Clinical Impression: Cellulitis of right foot Disposition: Admitted As Inpatient Condition: Fair General Adult HPI - General Chief complaint: ED Extremity Problem,Nontraumatic Stated complaint: Right foot swelling,Shaking Time Seen by Provider: 12/15/17 16:11 Source: patient Limitations: no limitations - History of Present Illness Pain Scale: 10 - Related Data Home Medications Medication Instructions Recorded Confirmed Insulin ASPART [Novolog Flexpen] 10 unit SQ TIDWM 07/25/16 12/15/17 Insulin Glargine,Hum.rec.anlog 30 unit SQ QAM 12/15/17 12/15/17 [Basaglar Kwikpen U-100] Allergies Allergy/AdvReac Type Severity Reaction Status Date / Time No Known Allergies Allergy Verified 12/15/17 19:24 Past Medical History - Past Medical History Medical history: Reports: cancer, cirrhosis, diabetes, other Surgical history: Reports: orthopedic, other, other Psychiatric history: Reports: no psych history - Social History Smoking Status: Never smoker Smokeless Tobacco Status: Yes (daily) Alcohol use: Reports: none Drug use: Reports: none Physical Exam - General Limitations: no limitations General appearance: alert Course Vital Signs Temperature 98.6 F 12/15/17 16:08 Pulse Rate 98 12/15/17 16:08 Respiratory Rate 20 12/15/17 16:08 Blood Pressure 144/82 12/15/17 16:08 O2 Sat by Pulse Oximetry 98 12/15/17 16:08 Temperature 98.6 F 12/15/17 16:24 Pulse Rate 87 12/15/17 19:10 Respiratory Rate 16 12/15/17 20:42 Blood Pressure 115/71 12/15/17 20:42 O2 Sat by Pulse Oximetry 98 12/15/17 19:10 Oxygen Delivery Oxygen Delivery Room Air Medical Decision Making - Lab Data Result diagrams: 12/15/17 17:09 12/15/17 17:09 Lab Results 12/15/17 12/15/17 12/15/17 Range/Units 16:29 16:31 17:09 WBC 12.6 H (4.3-11.1) K/mcL RBC 3.75 L (4.19-5.50) M/mcL Hgb 11.4 L (12.9-16.9) g/dL Hct 33.4 L (37.5-50.1) % MCV 89.1 (83.0-100.0) fL MCH 30.4 (28.0-33.3) pg MCHC 34.1 (31.6-35.5) g/dL RDW 14.2 (11.5-14.5) % Plt Count 79 L (140-400) K/mcL MPV 10.8 (9.4-12.4) fL Immature Gran % 0.8 (0-4) % Seg Neutrophils % 84.0 % Lymphocytes % 7.2 % Monocytes % 6.2 % Eosinophils % 1.3 % Basophils % 0.5 % Neutrophils # 10.6 H (1.6-8.9) K/mcL Lymphocytes # 0.9 (0.6-4.6) K/mcL Monocytes # 0.8 (0.0-1.3) K/mcL Eosinophils # 0.2 (0.0-0.6) K/mcL Basophils # 0.1 (0.0-0.2) K/mcL Immature Plt Fraction 4.2 (1.1-6.1) % ESR (0-10) mm/hr Sodium (136-145) mEq/L Potassium (3.5-5.1) mEq/L Chloride (98-107) mEq/L Carbon Dioxide (23-29) mEq/L BUN (6-20) mg/dL Creatinine (0.70-1.30) mg/dL Est GFR ( Amer) (> 60) Est GFR (Non-Af Amer) (> 60) BUN/Creatinine Ratio (6-26) Glucose (70-105) mg/dL POC Glucose 377 H 332 H (70-99) mg/dL Calculated Osmolality (280-300) Lactic Acid (0.5-2.2) mmol/L Calcium (8.6-10.3) mg/dL C-Reactive Protein (Less than 10) mg/L 12/15/17 12/15/17 12/15/17 Range/Units 17:09 17:09 18:20 WBC (4.3-11.1) K/mcL RBC (4.19-5.50) M/mcL Hgb (12.9-16.9) g/dL Hct (37.5-50.1) % MCV (83.0-100.0) fL MCH (28.0-33.3) pg MCHC (31.6-35.5) g/dL RDW (11.5-14.5) % Plt Count (140-400) K/mcL MPV (9.4-12.4) fL Immature Gran % (0-4) % Seg Neutrophils % % Lymphocytes % % Monocytes % % Eosinophils % % Basophils % % Neutrophils # (1.6-8.9) K/mcL Lymphocytes # (0.6-4.6) K/mcL Monocytes # (0.0-1.3) K/mcL Eosinophils # (0.0-0.6) K/mcL Basophils # (0.0-0.2) K/mcL Immature Plt Fraction (1.1-6.1) % ESR 37 H (0-10) mm/hr Sodium 132 L (136-145) mEq/L Potassium 3.6 (3.5-5.1) mEq/L Chloride 99 (98-107) mEq/L Carbon Dioxide 25 (23-29) mEq/L BUN 9 (6-20) mg/dL Creatinine 0.64 L (0.70-1.30) mg/dL Est GFR ( Amer) > 60 (> 60) Est GFR (Non-Af Amer) > 60 (> 60) BUN/Creatinine Ratio 14 (6-26) Glucose 331 H (70-105) mg/dL POC Glucose (70-99) mg/dL Calculated Osmolality 286 (280-300) Lactic Acid 1.9 (0.5-2.2) mmol/L Calcium 8.1 L (8.6-10.3) mg/dL C-Reactive Protein 16 H (Less than 10) mg/L Attestation Statement - Attestation Attestation: I examined this patient and my medical decision-making was reviewed with the Resident Physician. I agree with the documented findings, disposition and treatment plan as described except to the extent set forth below. . Patient presents to the ED with chief benefit swelling. Patient was seen here and admitted a couple weeks ago for the same. He has redness and swelling on examination around the right ankle and heel. It is warm to touch. Plan. Patient is an uncontrolled diabetic. He was admitted for the same a few weeks ago. He received IV antibiotics and was discharged home. He has an appointment on Monday with podiatry. He states is more swollen now than it was when he was admitted the last time. There appears to be purulence on the plantar aspect of the heel. I reviewed his x-ray from today and the last visit which does not show any appreciable foreign bodies. Patient will be admitted for IV antibiotics and podiatry consult.
[2017-12-15 17:31] LABS: Basophils % 0.5 %; Hematocrit 33.4 % (37.5-50.1); Mean Corpuscular Volume 89.1 fL (83.0-100.0); Mean Platelet Volume 10.8 fL (9.4-12.4); Red Blood Count 3.75 M/mcL (4.19-5.50); Red Cell Distribution Width 14.2 % (11.5-14.5)
[2017-12-15 17:32] LABS: Basophils # 0.1 K/mcL (0.0-0.2); Eosinophils # 0.2 K/mcL (0.0-0.6); Eosinophils % 1.3 %; Hemoglobin 11.4 g/dL (12.9-16.9); Immature Granulocytes % 0.8 % (0-4); Immature Platelets 4.2 % (1.1-6.1); Lymphocytes # 0.9 K/mcL (0.6-4.6); Lymphocytes % 7.2 %; Mean Corpuscular HGB Conc 34.1 g/dL (31.6-35.5); Mean Corpuscular Hemoglobin 30.4 pg (28.0-33.3); Monocytes # 0.8 K/mcL (0.0-1.3); Monocytes % 6.2 %; Neutrophils # 10.6 K/mcL (1.6-8.9)
[2017-12-15 17:37] LABS: Platelet Count 79 K/mcL (140-400)
[2017-12-15] MEDS ORDERED: Cefepime HCl 2,000 MG in Water for inj. (sterile) 20 ML 20 ML IVP STA (17:44)
[2017-12-15 17:47] LABS: C-Reactive Protein 16 mg/L (Less than 10)
[2017-12-15] MEDS ORDERED: Piperacillin/Tazobactam 3.375 GM in 0.9 % Sodium Chloride Mini Bag 100 ML IVPB ONE (18:16)
[2017-12-15 19:46] LABS: BUN/Creatinine Ratio 14 (6-26); Blood Urea Nitrogen 9 mg/dL (6-20); Calcium 8.1 mg/dL (8.6-10.3); Carbon Dioxide 25 mEq/L (23-29); Chloride 99 mEq/L (98-107); Glucose 331 mg/dL (70-105); Osmolality,Calculated 286 (280-300); Potassium 3.6 mEq/L (3.5-5.1); Sodium 132 mEq/L (136-145); eGFR For African Americans > 60 (> 60); eGFR For Non-African Americans > 60 (> 60)
[2017-12-15] MEDS ORDERED: Naloxone 0.4 MG/ML INJ IVP PRN (19:48)
--- NOTE | 2017-12-15 19:55 | Emergency Department Note ---
Disposition Clinical Impression: Cellulitis of right foot Disposition: Admitted As Inpatient Condition: Fair Time of Disposition: 19:57 General Adult HPI - General Chief complaint: ED Extremity Problem,Nontraumatic Stated complaint: Right foot swelling,Shaking Time Seen by Provider: 12/15/17 16:11 Source: patient Mode of arrival: ambulatory Limitations: no limitations Nursing Notes Reviewed: Yes Vital Signs Reviewed: Yes - History of Present Illness HPI Narrative: Patient is a 57-year-old male with a past medical history of diabetes, and cellulitis presents for evaluation of worsening cellulitis. The patient states he was recently discharged from the hospital which was undergoing treatment for IV antibiotics for right foot cellulitis. He states that his symptoms initially improved and he is placed on a ten-day course of Augmentin, however he is currently on day 6 of outpatient treatment and his cellulitis appears to be returning and worsening and he has noticed swelling of his ankle. States he sees Dr. Mccloud for podiatry for his cellulitis. Denies any fevers, chills, or nausea. No recent injury. No calf pain or swelling. Pain Scale: 10 - Related Data Home Medications Medication Instructions Recorded Confirmed Insulin ASPART [Novolog Flexpen] 10 unit SQ TIDWM 07/25/16 12/15/17 Insulin Glargine,Hum.rec.anlog 30 unit SQ QAM 12/15/17 12/15/17 [Basaglar Kwikpen U-100] Allergies Allergy/AdvReac Type Severity Reaction Status Date / Time No Known Allergies Allergy Verified 12/15/17 19:24 All systems ED: reviewed and negative except as stated. Review of Systems: As Per HPI Constitutional: Denies: fever, chills Cardiovascular: Denies: chest pain, palpitations Respiratory: Denies: cough, dyspnea Gastrointestinal: Denies: abdominal pain, nausea Musculoskeletal: Reports: joint swelling Integumentary: Reports: rash Past Medical History - Past Medical History Attestation: Yes The following information was validated with the patient. Medical history: Reports: cancer, cirrhosis, diabetes, other Surgical history: Reports: orthopedic, other, other Psychiatric history: Reports: no psych history - Social History Smoking Status: Never smoker Smokeless Tobacco Status: Yes (daily) Alcohol use: Reports: none Drug use: Reports: none Physical Exam CONSTITUTIONAL: Alert and oriented X3, well-nourished, well appearing, in no apparent distress HEAD: Normocephalic; atraumatic. EYES: PERRL, no scleral icterus. NOSE: The nose is normal in appearance without rhinorrhea RESP: Normal chest excursion with respiration; breath sounds clear and equal bilaterally; no wheezes, rhonchi, or rales CARD: Regular rhythm, without murmurs, rub or gallop ABD: Non-distended; non-tender, soft,without rigidity, rebound or guarding SKIN: Normal for age and race; warm and dry; no apparent lesions EXT: Patient's right ankle does appear edematous. There is surrounding erythema over the medial and lateral aspects of the ankle that is reaching to the black line margins that were previously drawn on from previous admission. 2+ pulses. Full range of motion. Patient also has a blister-like lesion at the heel of his right foot that appears to have a serosanguineous liquid present. No active drainage. No crepitance. - General Limitations: no limitations General appearance: alert Course Course Narrative: Patient underwent an x-ray of the right foot which revealed a cellulitis, no signs of osteomyelitis. Patient also had inflammatory markers that were low to within normal limits. No leukocytosis. No systemic signs or symptoms of infection. Discussed patient case with the head nurse on-call, Dr. Hernandez, he agrees with the current plan which is IV antibiotics, cultures, an admission to the hospital. States that he will see the patient in the morning and to admit the patient to the hospitalist. Discussed plans with the patient and he agrees. Vital Signs Temperature 98.6 F 12/15/17 16:08 Pulse Rate 98 12/15/17 16:08 Respiratory Rate 20 12/15/17 16:08 Blood Pressure 144/82 12/15/17 16:08 O2 Sat by Pulse Oximetry 98 12/15/17 16:08 Temperature 98.6 F 12/15/17 16:24 Pulse Rate 87 12/15/17 19:10 Respiratory Rate 17 12/15/17 19:10 Blood Pressure 121/77 12/15/17 19:10 O2 Sat by Pulse Oximetry 98 12/15/17 19:10 Oxygen Delivery Oxygen Delivery Room Air Medical Decision Making - Medical Records Medical records reviewed: Yes I reviewed the patient's medical records. - Lab Data Lab results reviewed: Yes I reviewed the patient's lab results. Result diagrams: 12/15/17 17:09 12/15/17 17:09 Lab Results 12/15/17 12/15/17 12/15/17 Range/Units 16:29 16:31 17:09 WBC 12.6 H (4.3-11.1) K/mcL RBC 3.75 L (4.19-5.50) M/mcL Hgb 11.4 L (12.9-16.9) g/dL Hct 33.4 L (37.5-50.1) % MCV 89.1 (83.0-100.0) fL MCH 30.4 (28.0-33.3) pg MCHC 34.1 (31.6-35.5) g/dL RDW 14.2 (11.5-14.5) % Plt Count 79 L (140-400) K/mcL MPV 10.8 (9.4-12.4) fL Immature Gran % 0.8 (0-4) % Seg Neutrophils % 84.0 % Lymphocytes % 7.2 % Monocytes % 6.2 % Eosinophils % 1.3 % Basophils % 0.5 % Neutrophils # 10.6 H (1.6-8.9) K/mcL Lymphocytes # 0.9 (0.6-4.6) K/mcL Monocytes # 0.8 (0.0-1.3) K/mcL Eosinophils # 0.2 (0.0-0.6) K/mcL Basophils # 0.1 (0.0-0.2) K/mcL Immature Plt Fraction 4.2 (1.1-6.1) % ESR (0-10) mm/hr Sodium (136-145) mEq/L Potassium (3.5-5.1) mEq/L Chloride (98-107) mEq/L Carbon Dioxide (23-29) mEq/L BUN (6-20) mg/dL Creatinine (0.70-1.30) mg/dL Est GFR ( Amer) (> 60) Est GFR (Non-Af Amer) (> 60) BUN/Creatinine Ratio (6-26) Glucose (70-105) mg/dL POC Glucose 377 H 332 H (70-99) mg/dL Calculated Osmolality (280-300) Lactic Acid (0.5-2.2) mmol/L Calcium (8.6-10.3) mg/dL C-Reactive Protein (Less than 10) mg/L 12/15/17 12/15/17 12/15/17 Range/Units 17:09 17:09 18:20 WBC (4.3-11.1) K/mcL RBC (4.19-5.50) M/mcL Hgb (12.9-16.9) g/dL Hct (37.5-50.1) % MCV (83.0-100.0) fL MCH (28.0-33.3) pg MCHC (31.6-35.5) g/dL RDW (11.5-14.5) % Plt Count (140-400) K/mcL MPV (9.4-12.4) fL Immature Gran % (0-4) % Seg Neutrophils % % Lymphocytes % % Monocytes % % Eosinophils % % Basophils % % Neutrophils # (1.6-8.9) K/mcL Lymphocytes # (0.6-4.6) K/mcL Monocytes # (0.0-1.3) K/mcL Eosinophils # (0.0-0.6) K/mcL Basophils # (0.0-0.2) K/mcL Immature Plt Fraction (1.1-6.1) % ESR 37 H (0-10) mm/hr Sodium 132 L (136-145) mEq/L Potassium 3.6 (3.5-5.1) mEq/L Chloride 99 (98-107) mEq/L Carbon Dioxide 25 (23-29) mEq/L BUN 9 (6-20) mg/dL Creatinine 0.64 L (0.70-1.30) mg/dL Est GFR ( Amer) > 60 (> 60) Est GFR (Non-Af Amer) > 60 (> 60) BUN/Creatinine Ratio 14 (6-26) Glucose 331 H (70-105) mg/dL POC Glucose (70-99) mg/dL Calculated Osmolality 286 (280-300) Lactic Acid 1.9 (0.5-2.2) mmol/L Calcium 8.1 L (8.6-10.3) mg/dL C-Reactive Protein 16 H (Less than 10) mg/L - Radiology Data Radiology results reviewed: Yes I reviewed the patient's radiology results. Ankle X-Ray 12/15/17 16:44 IMPRESSION: Soft tissue swelling of the ankle- cellulitis versus edema. No acute osseous abnormality is detected. D/ / Derrick Shelton MD / Derrick Shelton MD Interpreting Provider: Derrick Shelton MD
[2017-12-15] MEDS ORDERED: Dextrose Gel 15 GM/37.5 ML TUBE PO PRN ×2 (19:57)
[2017-12-15] MEDS ORDERED: D5% in Water 1,000 ML IVC PRN (19:57)
[2017-12-15] MEDS ORDERED: *HR* Dextrose 50 % in Water (Syg) 50 ML SYRINGE IVP PRN (19:57)
--- NOTE | 2017-12-15 20:10 | Internal Med History&Physical ---
Date of Encounter: 12/15/17 Time of Encounter: 19:30 Internal Medicine - H&P: HPI Chief complaint: Cellulitis, Diabetes Admitted From: Home Plans for Post Hospital Care: Home History of present illness: Mr. Slade is a 57 year old male Patient presents to emergency room with right foot pain. He has a recent history of admission to the hospital one week ago for the same complaint. At that time he was treated with IV vancomycin and Zosyn, discharged to home with oral Augmentin and to be seen by podiatry on December 19. Patient states that once he got home his pain initially improved and the swelling seemed to be going down, however it began swelling and becoming more painful than before. He states he initially injured his foot while shoveling about 3 weeks ago. Currently his foot is very tender and swollen in the redness has extended around the entire ankle. Occasionally he feels pain up to his leg venous constant pain in the foot and toes. He denies fever but has had chills. He denies nausea, vomiting, chest pain and abdominal pain. In the emergency room podiatry was consultative and will see the patient tomorrow. Blood cultures and wound cultures have been obtained. He will be admitted for IV antibiotic therapy. Past Med Surg Social Fam HX - Past Medical History Medical history: cancer, cirrhosis, diabetes, other Additional medical history: Liver Cancer, thrombocytopenia Psychiatric history: no psych history - Past Surgical History Surgical History: orthopedic, other, other Additional surgical history: elbow surgery and eye surgery, colonoscopy - Social History Smoking Status: Never smoker Smokeless Tobacco Status: Yes (daily) Alcohol use: none Drug use: none - Family History Father Living Status: Hx Family Cancer: Yes Mother Adopted: No Family Member Ethnicity: Non- Living Status: Still Living Hx Family Cardiac Disorders: No Hx Family Respiratory Disorders: Yes (sleep apnea) Hx Family Cancer: No Hx Family GI Disorders: Yes (hernia) Hx Family Endocrine Disorder: Yes (DM) Hx Family Neuromuscular Disorders: No Hx Family Neurologic Disorders: No Hx Family HEENT Disorders: No Hx Family Autoimmune Disorders: No Internal Medicine - H&P: Meds Insulin ASPART [Novolog Flexpen] 12 unit SQ TIDWM 07/25/16 [History] Insulin Glargine,Hum.rec.anlog [Basaglar Kwikpen U-100] 30 unit SQ QAM 12/15/17 [History] 3 Allergy/AdvReac Type Severity Reaction Status Date / Time No Known Allergies Allergy Verified 12/15/17 19:24 All Systems PM: A 10-system review of systems was performed and is negative for pertinent findings except as documented above in the HPI. - Constitutional Vitals: Temp Pulse Resp BP Pulse Ox 98.6 F 87 17 121/77 98 12/15/17 16:24 12/15/17 19:10 12/15/17 19:10 12/15/17 19:10 12/15/17 19:10 General appearance: Present: mild distress, A&O X 3, pleasant - Head Head exam: Present: normal inspection - Eye Eye exam: Present: EOMI, normal appearance - Respiratory Respiratory exam: Present: CTAB. Absent: decreased breath sounds, respiratory distress - Cardiovascular Cardiovascular exam: Present: RRR. Absent: diastolic murmur, systolic murmur - GI/Abdominal GI/Abdominal exam: Present: normal bowel sounds. Absent: mass, tenderness - Extremities Exam Extremities exam: Present: radial pulses palpable and symmetrical. Absent: calf tenderness Additional comments: The right heel has a large area of erythema surrounding the heel. There is a wound on the heel approximately 3-4 cm in diameter. The entire right foot is tender to palpation. Some pain with palpation to the lower calf. The wound is not open although wound cultures were obtained. The right foot is swollen to the ankle, and there is a marker noting the area of redness from his prior admission. The redness now extends beyond this border. Left foot within normal limits no tenderness or pain or signs of infection. - Neurological Exam Neurological exam: Present: oriented X3, no focal deficits. Absent: speech deficit - Skin Additional comments: Within normal limits aside from right foot as described above Internal Med - H&P Results - Labs CBC & Chem 7: 12/15/17 17:09 12/15/17 17:09 - Assessment and plan (1) Cellulitis of right foot Current Visit: Yes Status: Acute Assessment and plan: Patient has had this infection for the last few weeks, including previous admission we could go where he was treated with IV antibiotics. He was discharged at that time oral Augmentin with follow-up with podiatry. This admission patient's pain and swelling is greater than previous according to the patient. ESR was 37, and CRP 16. Patient does not meet sepsis criteria. Vancomycin and Zosyn initiated in the emergency room Continue vancomycin IV, pharmacy to dose Continue Zosyn IV Follow-up wound culture Follow up blood culture Podiatry consult tomorrow (2) Right ankle pain Current Visit: No Status: Acute Assessment and plan: Secondary to cellulitis. Treatment for cellulitis as above Dyer 5/325 for pain. Qualifiers: Chronicity: acute Qualified Code(s): M25.571 - Pain in right ankle and joints of right foot (3) Diabetes Current Visit: No Status: Chronic Assessment and plan: A1c from last week's admission was 7.7. Patient states he is fairly well controlled with 30 units of physical or at night and 10 units of NovoLog with meals. Blood sugar elevated to 331 in ER. Likely exacerbated by his current infection in his right foot. 15u levemir for tonight Insulin sliding scale with meals while in the hospital. Discussed foot care Qualifiers: Diabetes mellitus type: type 2 Diabetes mellitus penitentiary insulin use: without enrolled agent use Diabetes mellitus complication status: without complication Qualified Code(s): E11.9 - Type 2 diabetes mellitus without complications (4) Thrombocytopenia Current Visit: No Status: Acute Assessment and plan: History of cirrhosis secondary to hepatitis C infection. Patient's platelets are 79. Continue to monitor Will hold off on giving chemical VTE prophylaxis, and use SCDs instead. (5) Hepatitis C infection Current Visit: No Status: Chronic Assessment and plan: Chronic Monitor platelets. Qualifiers: Qualified Code(s): B19.20 - Unspecified viral hepatitis C without hepatic coma (6) Cirrhosis Current Visit: No Status: Chronic Assessment and plan: Chronic, secondary to Hep C. Monitor platelets. Qualifiers: Qualified Code(s): K74.60 - Unspecified cirrhosis of liver (7) DVT prophylaxis Current Visit: No Status: Acute Assessment and plan: SCDs. - Time Spent With Patient Total time spent is greater than 50% in coordination of care (as documented) at patient's floor/unit and/or counseling patient: Greater than 35 minutes
[2017-12-15] MEDS: Insulin LISPRO 300 UNITS/3 ML VIAL SQ SCH (21:26)
[2017-12-15] MEDS: *HR* HYDROcodone/Acet 5/325 mg TABLET PO PRN (21:26)
[2017-12-15] MEDS: Insulin DETEMIR 100 UNIT/ML X5UNITS SQ SCH (21:42)
[2017-12-16] MEDS: Piperacillin/Tazobactam 3.375 GM in 0.9 % Sodium Chloride Mini Bag 100 ML IVPB SCH ×3 (02:56→18:23)
[2017-12-16] MEDS: *HR* HYDROcodone/Acet 5/325 mg TABLET PO PRN ×3 (05:08→18:10)
[2017-12-16 05:31] LABS: Hematocrit 30.5 % (37.5-50.1); Hemoglobin 10.8 g/dL (12.9-16.9); Immature Platelets 4.2 % (1.1-6.1); Mean Corpuscular HGB Conc 35.4 g/dL (31.6-35.5); Mean Corpuscular Hemoglobin 31.7 pg (28.0-33.3); Mean Corpuscular Volume 89.4 fL (83.0-100.0); Red Blood Count 3.41 M/mcL (4.19-5.50); Red Cell Distribution Width 14.2 % (11.5-14.5)
[2017-12-16 05:43] LABS: BUN/Creatinine Ratio 14 (6-26); Blood Urea Nitrogen 8 mg/dL (6-20); Calcium 7.8 mg/dL (8.6-10.3); Carbon Dioxide 27 mEq/L (23-29); Chloride 104 mEq/L (98-107); Glucose 179 mg/dL (70-105); Osmolality,Calculated 281 (280-300); Potassium 3.4 mEq/L (3.5-5.1); Sodium 134 mEq/L (136-145); eGFR For African Americans > 60 (> 60); eGFR For Non-African Americans > 60 (> 60)
[2017-12-16] MEDS: Insulin LISPRO 300 UNITS/3 ML VIAL SQ SCH ×3 (08:48→16:37)
--- NOTE | 2017-12-16 11:22 | Internal Med Progress Note ---
Date of Encounter: 12/16/17 Time of Encounter: 11:20 - Assessment and plan (1) Cellulitis of right foot Current Visit: Yes Status: Acute Assessment and plan: Continue on vancomycin and zosyn. Podiatry recs appreciated (2) DVT prophylaxis Current Visit: No Status: Acute Assessment and plan: Heparin sc (3) Diabetes Current Visit: No Status: Chronic Assessment and plan: Continue insulin. Monitor fingersticks Qualifiers: Diabetes mellitus type: type 2 Diabetes mellitus senior living insulin use: without senior living use Diabetes mellitus complication status: without complication Qualified Code(s): E11.9 - Type 2 diabetes mellitus without complications (4) Thrombocytopenia Current Visit: No Status: Acute (5) Cirrhosis Current Visit: No Status: Chronic Assessment and plan: Chronic. Outpatient follow up Qualifiers: Qualified Code(s): K74.60 - Unspecified cirrhosis of liver (6) Hypokalemia Current Visit: Yes Status: Acute Assessment and plan: Replaced - Time Spent With Patient Total time spent is greater than 50% in coordination of care (as documented) at patient's floor/unit and/or counseling patient: - Subjective Interval history: No acute events overnight - Constitutional Vitals: Temp Pulse Resp BP Pulse Ox 98.3 F 80 16 128/75 99 12/16/17 10:55 12/16/17 10:55 12/16/17 10:55 12/16/17 10:55 12/16/17 10:55 General appearance: Present: mild distress, A&O X 3, pleasant - Head Head exam: Present: atraumatic, normocephalic - Eye Eye exam: Present: PERRL, conjuntiva pink, sclera anicteric Pupils: Present: PERRL - Neck Neck exam general surgery: Present: supple, trachea midline. Absent: lymphadenopathy - Respiratory Respiratory exam: Present: CTAB. Absent: accessory muscle use, rales, rhonchi, wheezes - Cardiovascular Cardiovascular exam: Present: RRR, +S1, +S2. Absent: diastolic murmur, gallop, rubs, systolic murmur - GI/Abdominal GI/Abdominal exam: Present: normal bowel sounds, soft, no peritoneal signs. Absent: distended, tenderness - Extremities Exam Extremities exam: Present: warm, radial pulses palpable and symmetrical. Absent : calf tenderness, cyanotic, pedal edema - Neurological Exam Neurological exam: Present: CN II-XII intact, oriented X3, no focal deficits. Absent: pronater drift, facial droop, speech deficit - Skin Skin exam: Present: dry, intact Internal Medicine: Result - Labs CBC & Chem 7: 12/16/17 04:59 12/16/17 04:59 Labs: Short CBC 12/16/17 Range/Units 04:59 WBC 11.1 (4.3-11.1) K/mcL Hgb 10.8 L (12.9-16.9) g/dL Hct 30.5 L (37.5-50.1) % Plt Count 65 L (140-400) K/mcL BMP 12/16/17 04:59 Sodium 134 L Potassium 3.4 L Chloride 104 Carbon Dioxide 27 BUN 8 Creatinine 0.57 L Glucose 179 H Calcium 7.8 L - VTE Documentation of Mechanical Device: Venous foot pump, device Consult Discharge Plan - Plan Referrals: Woody Torres DO [Primary Care Provider] -
[2017-12-16] MEDS: *HR* Heparin 5,000 UNIT/ML VIAL SQ SCH (18:25)
[2017-12-16] MEDS: Potassium Chloride Elixir 20 MEQ/15 ML UDC PO SCH (20:36)
[2017-12-16] MEDS: Insulin DETEMIR 100 UNIT/ML X5UNITS SQ SCH (20:36)
[2017-12-17] MEDS: OXYCODONE Oral CONC 10 MG/0.5 ML ORAL.SYG SL PRN ×3 (00:08→20:47)
[2017-12-17 01:20] LABS: Mean Platelet Volume 11.1 fL (9.4-12.4)
[2017-12-17 01:22] LABS: Basophils # 0.1 K/mcL (0.0-0.2); Basophils % 0.5 %; Eosinophils # 0.2 K/mcL (0.0-0.6); Hematocrit 30.5 % (37.5-50.1); Hemoglobin 10.4 g/dL (12.9-16.9); Immature Granulocytes % 0.8 % (0-4); Immature Platelets 3.8 % (1.1-6.1); Lymphocytes # 1.6 K/mcL (0.6-4.6); Mean Corpuscular HGB Conc 34.1 g/dL (31.6-35.5); Mean Corpuscular Hemoglobin 30.8 pg (28.0-33.3); Mean Corpuscular Volume 90.2 fL (83.0-100.0); Monocytes % 8.6 %; Neutrophils # 8.3 K/mcL (1.6-8.9); Red Blood Count 3.38 M/mcL (4.19-5.50); Red Cell Distribution Width 13.9 % (11.5-14.5); Segmented Neutrophils % 74.1 %
[2017-12-17 01:24] LABS: Platelet Count 67 K/mcL (140-400)
[2017-12-17 01:42] LABS: BUN/Creatinine Ratio 13 (6-26); Blood Urea Nitrogen 8 mg/dL (6-20); Calcium 7.7 mg/dL (8.6-10.3); Carbon Dioxide 28 mEq/L (23-29); Chloride 102 mEq/L (98-107); Glucose 304 mg/dL (70-105); Osmolality,Calculated 280 (280-300); Sodium 130 mEq/L (136-145); eGFR For African Americans > 60 (> 60); eGFR For Non-African Americans > 60 (> 60)
[2017-12-17] MEDS: Piperacillin/Tazobactam 3.375 GM in 0.9 % Sodium Chloride Mini Bag 100 ML IVPB SCH ×3 (03:45→19:55)
[2017-12-17] MEDS: *HR* Heparin 5,000 UNIT/ML VIAL SQ SCH ×2 (06:16→17:34)
[2017-12-17] MEDS: *HR* HYDROcodone/Acet 5/325 mg TABLET PO PRN ×2 (09:34→17:28)
[2017-12-17] MEDS: Potassium Chloride Elixir 20 MEQ/15 ML UDC PO SCH ×2 (09:34→20:05)
[2017-12-17] MEDS: Insulin LISPRO 300 UNITS/3 ML VIAL SQ SCH ×3 (09:38→17:34)
[2017-12-17] MEDS ORDERED: Gadolinium Contrast Agent (WT Based) IV PRN (11:24)
--- NOTE | 2017-12-17 11:29 | Podiatry Progress Note ---
Date of Encounter: 12/17/17 Time of Encounter: 11:27 - Assessment and Plan (1) Right ankle pain Current Visit: No Status: Acute Qualifiers: Chronicity: acute Qualified Code(s): M25.571 - Pain in right ankle and joints of right foot (2) Cellulitis of right foot Current Visit: Yes Status: Acute Assessment: #1 cellulitis of the right foot lateral ankle with superficial blister possible abscess right inferior calcaneus #2 diabetes Plan: #1 agree with present broad-spectrum antibiotics #2 I and D at bedside today for culture of blister/ abscess #3 recommend MRI with and without contrast the right foot and ankle Subjective Principal diagnosis: Recurrent cellulitis right foot Interval history: The right calcaneus. Patient complaining of pain in the distal one third of the leg to the toes. Again no history of injury or trauma. Patient was taking antibiotics by mouth at home with no specific improvement. Cellulitis with regression. Patient recently admitted for intravenous antibiotics. Patient complaining of pain is not controlled with hydrocodone. He does have oxycodone for breakthrough pain. Objective - Vital Signs Vital Signs: Vital Signs Temp Pulse Resp BP Pulse Ox 12/17/17 10:45 98.0 F 84 16 109/66 99 12/17/17 06:50 98.0 F 75 15 124/72 98 12/17/17 05:22 98.1 F 73 14 129/78 99 12/17/17 00:05 98.2 F 77 14 135/71 98 12/16/17 18:58 98.9 F 86 16 146/78 99 12/16/17 15:01 99.1 F 87 16 122/68 98 Intake and Output 12/16/17 12/17/17 12/17/17 23:59 07:59 15:59 Intake Total 590 / 590 100 / 100 1120 / 1120 Output Total 150 / 150 675 / 675 200 / 200 Balance 440 / 440 -575 / -575 920 / 920 Intake: IV Fluids 350 / 350 100 / 100 Zosyn 3.375 GM In 0.9 % Sodium 100 / 100 100 / 100 Chloride (Mini-Bag +) 100 ML @ 25 mls/hr IVPB Q8H [facility] Rx#: [id number] Vancocin 1,000 MG In 0.9 % 250 / 250 Sodium Chloride 250 ML @ 167 mls/hr IVPB Q12HR [facility] Rx#: [id number] Oral 240 / 240 0 / 0 1120 / 1120 Output: Urine 150 / 150 675 / 675 200 / 200 Other: Meal Dinner Breakfast Percent of Meal Consumed 95% 100% Weight 76.1 kg Blood Glucose* 205 144 249 Patient Weight 12/17/17 23:59 Weight 76.1 kg - Exam Exam: Measuring approximately 5 cm x 5 cm. Localized cellulitis of the right lateral aspect of the Ankle. There is no obvious fluctuance or significant edema of the right foot or leg. Homans sign is negative. Capillary Refill: less than 3 seconds - Radiology MRIs: pending - Lab Result Diagrams: 12/17/17 00:52 12/17/17 00:52 Labs: Abnormal lab results WBC 11.2 K/mcL (4.3-11.1) H 12/17/17 00:52 RBC 3.38 M/mcL (4.19-5.50) L 12/17/17 00:52 Hgb 10.4 g/dL (12.9-16.9) L 12/17/17 00:52 Hct 30.5 % (37.5-50.1) L 12/17/17 00:52 Plt Count 67 K/mcL (140-400) L 12/17/17 00:52 ESR 37 mm/hr (0-10) H 12/15/17 17:09 Sodium 130 mEq/L (136-145) L 12/17/17 00:52 Creatinine 0.61 mg/dL (0.70-1.30) L 12/17/17 00:52 Glucose 304 mg/dL (70-105) H 12/17/17 00:52 POC Glucose 144 mg/dL (70-99) H 12/17/17 06:54 Calcium 7.7 mg/dL (8.6-10.3) L 12/17/17 00:52 C-Reactive Protein 16 mg/L (Less than 10) H 12/15/17 17:09 - VTE Documentation of Mechanical Device: Venous foot pump, device Consult Discharge Plan - Plan Referrals: Woody Torres DO [Primary Care Provider] -
--- NOTE | 2017-12-17 12:05 | Internal Med Progress Note ---
Date of Encounter: 12/17/17 Time of Encounter: 12:00 - Assessment and plan (1) Cellulitis of right foot Current Visit: Yes Status: Acute Assessment and plan: Continue on vancomycin and zosyn. Podiatry plan on MRI of right foot as well as an inicision and drainage of foot abscess today. Follow up MRI (2) Foot abscess, right Current Visit: Yes Status: Acute Assessment and plan: For incision and drainage by podiatry today (3) DVT prophylaxis Current Visit: No Status: Acute Assessment and plan: Heparin sc (4) Diabetes Current Visit: No Status: Chronic Assessment and plan: Continue insulin. Monitor fingersticks Qualifiers: Diabetes mellitus type: type 2 Diabetes mellitus intermediate insulin use: without intermediate use Diabetes mellitus complication status: without complication Qualified Code(s): E11.9 - Type 2 diabetes mellitus without complications (5) Thrombocytopenia Current Visit: No Status: Acute Assessment and plan: Monitor CBC (6) Cirrhosis Current Visit: No Status: Chronic Assessment and plan: Chronic. Outpatient follow up Qualifiers: Qualified Code(s): K74.60 - Unspecified cirrhosis of liver (7) Hypokalemia Current Visit: Yes Status: Acute Assessment and plan: Replaced - Time Spent With Patient Total time spent is greater than 50% in coordination of care (as documented) at patient's floor/unit and/or counseling patient: - Subjective Interval history: No acute events overnight - Constitutional Vitals: Temp Pulse Resp BP Pulse Ox 98.0 F 84 16 109/66 99 12/17/17 10:45 12/17/17 10:45 12/17/17 10:45 12/17/17 10:45 12/17/17 10:45 General appearance: Present: mild distress, A&O X 3, pleasant - Head Head exam: Present: atraumatic, normocephalic - Eye Eye exam: Present: PERRL, conjuntiva pink, sclera anicteric Pupils: Present: PERRL - Neck Neck exam general surgery: Present: supple, trachea midline. Absent: lymphadenopathy - Respiratory Respiratory exam: Present: CTAB. Absent: accessory muscle use, rales, rhonchi, wheezes - Cardiovascular Cardiovascular exam: Present: RRR, +S1, +S2. Absent: diastolic murmur, gallop, rubs, systolic murmur - GI/Abdominal GI/Abdominal exam: Present: normal bowel sounds, soft, no peritoneal signs. Absent: distended, tenderness - Extremities Exam Extremities exam: Present: warm, radial pulses palpable and symmetrical. Absent : calf tenderness, cyanotic, pedal edema - Neurological Exam Neurological exam: Present: CN II-XII intact, oriented X3, no focal deficits. Absent: pronater drift, facial droop, speech deficit - Skin Skin exam: Present: dry, intact Internal Medicine: Result - Labs CBC & Chem 7: 12/17/17 00:52 12/17/17 00:52 Labs: Short CBC 12/17/17 Range/Units 00:52 WBC 11.2 H (4.3-11.1) K/mcL Hgb 10.4 L (12.9-16.9) g/dL Hct 30.5 L (37.5-50.1) % Plt Count 67 L (140-400) K/mcL Neutrophils # 8.3 (1.6-8.9) K/mcL BMP 12/17/17 00:52 Sodium 130 L Potassium 4.0 Chloride 102 Carbon Dioxide 28 BUN 8 Creatinine 0.61 L Glucose 304 H Calcium 7.7 L - VTE Documentation of Mechanical Device: Venous foot pump, device Consult Discharge Plan - Plan Referrals: Woody Torres DO [Primary Care Provider] -
[2017-12-17 12:35] LABS: Magnesium 1.5 mg/dL (1.6-2.6)
[2017-12-17] MEDS: Insulin DETEMIR 100 UNIT/ML X5UNITS SQ SCH (20:17)
[2017-12-18 01:56] LABS: Eosinophils % 2.6 %; Monocytes % 7.5 %
[2017-12-18 01:58] LABS: Basophils # 0.1 K/mcL (0.0-0.2); Basophils % 0.8 %; Eosinophils # 0.3 K/mcL (0.0-0.6); Hematocrit 29.9 % (37.5-50.1); Hemoglobin 10.1 g/dL (12.9-16.9); Immature Granulocytes % 0.6 % (0-4); Immature Platelets 3.6 % (1.1-6.1); Lymphocytes # 1.4 K/mcL (0.6-4.6); Lymphocytes % 12.8 %; Mean Corpuscular HGB Conc 33.8 g/dL (31.6-35.5); Mean Corpuscular Hemoglobin 30.1 pg (28.0-33.3); Mean Corpuscular Volume 89.3 fL (83.0-100.0); Monocytes # 0.8 K/mcL (0.0-1.3); Red Blood Count 3.35 M/mcL (4.19-5.50); Red Cell Distribution Width 14.2 % (11.5-14.5); Segmented Neutrophils % 75.7 %
[2017-12-18 02:09] LABS: Platelet Count 76 K/mcL (140-400)
[2017-12-18 02:15] LABS: BUN/Creatinine Ratio 11 (6-26); Blood Urea Nitrogen 6 mg/dL (6-20); Calcium 7.8 mg/dL (8.6-10.3); Carbon Dioxide 28 mEq/L (23-29); Chloride 102 mEq/L (98-107); Glucose 200 mg/dL (70-105); Osmolality,Calculated 275 (280-300); Sodium 131 mEq/L (136-145); eGFR For African Americans > 60 (> 60); eGFR For Non-African Americans > 60 (> 60)
[2017-12-18] MEDS: Piperacillin/Tazobactam 3.375 GM in 0.9 % Sodium Chloride Mini Bag 100 ML IVPB SCH ×3 (03:22→17:53)
[2017-12-18] MEDS: *HR* HYDROcodone/Acet 5/325 mg TABLET PO PRN ×2 (06:25→16:29)
[2017-12-18] MEDS: *HR* Heparin 5,000 UNIT/ML VIAL SQ SCH ×2 (06:29→17:52)
[2017-12-18] MEDS: Insulin LISPRO 300 UNITS/3 ML VIAL SQ SCH ×4 (08:26→21:57)
[2017-12-18] MEDS: Potassium Chloride Elixir 20 MEQ/15 ML UDC PO SCH ×2 (08:33→21:19)
[2017-12-18] MEDS: Ondansetron 4 MG/2 ML VIAL IVP PRN (11:38)
[2017-12-18] MEDS: OXYCODONE Oral CONC 10 MG/0.5 ML ORAL.SYG SL PRN ×2 (11:38→20:14)
--- NOTE | 2017-12-18 11:46 | Internal Med Progress Note ---
Date of Encounter: 12/18/17 Time of Encounter: 11:40 - Assessment and plan (1) Cellulitis of right foot Current Visit: Yes Status: Acute Assessment and plan: Continue on vancomycin and zosyn. Podiatry plan on MRI of right foot as well as an inicision and drainage of foot abscess. MRI showed no evidence of osteomyelitis, but a partial thickness tear of achilles tendon is present . Podiatry following (2) Foot abscess, right Current Visit: Yes Status: Acute Assessment and plan: For incision and drainage by podiatry today (3) Diabetes Current Visit: No Status: Chronic Assessment and plan: Continue insulin. Monitor fingersticks Qualifiers: Diabetes mellitus type: type 2 Diabetes mellitus nursing home insulin use: without ocean transportation intermediary use Diabetes mellitus complication status: without complication Qualified Code(s): E11.9 - Type 2 diabetes mellitus without complications (4) Thrombocytopenia Current Visit: No Status: Acute Assessment and plan: Monitor CBC (5) Cirrhosis Current Visit: No Status: Chronic Assessment and plan: Chronic. Outpatient follow up Qualifiers: Qualified Code(s): K74.60 - Unspecified cirrhosis of liver (6) Hypokalemia Current Visit: Yes Status: Acute Assessment and plan: Replaced (7) DVT prophylaxis Current Visit: No Status: Acute Assessment and plan: Heparin sc - Time Spent With Patient Total time spent is greater than 50% in coordination of care (as documented) at patient's floor/unit and/or counseling patient: - Subjective Interval history: No acute events overnight - Constitutional Vitals: Temp Pulse Resp BP Pulse Ox 98.6 F 74 16 146/82 100 12/18/17 06:46 12/18/17 06:46 12/18/17 06:46 12/18/17 06:46 12/18/17 06:46 General appearance: Present: mild distress, A&O X 3, pleasant - Head Head exam: Present: atraumatic, normocephalic - Eye Eye exam: Present: PERRL, conjuntiva pink, sclera anicteric Pupils: Present: PERRL - Neck Neck exam general surgery: Present: supple, trachea midline. Absent: lymphadenopathy - Respiratory Respiratory exam: Present: CTAB. Absent: accessory muscle use, rales, rhonchi, wheezes - Cardiovascular Cardiovascular exam: Present: RRR, +S1, +S2. Absent: diastolic murmur, gallop, rubs, systolic murmur - GI/Abdominal GI/Abdominal exam: Present: normal bowel sounds, soft, no peritoneal signs. Absent: distended, tenderness - Extremities Exam Extremities exam: Present: warm, radial pulses palpable and symmetrical. Absent : calf tenderness, cyanotic, pedal edema - Neurological Exam Neurological exam: Present: CN II-XII intact, oriented X3, no focal deficits. Absent: pronater drift, facial droop, speech deficit - Skin Skin exam: Present: dry, intact Internal Medicine: Result - Labs CBC & Chem 7: 12/18/17 01:13 12/18/17 01:13 Labs: Short CBC 12/18/17 Range/Units 01:13 WBC 10.6 (4.3-11.1) K/mcL Hgb 10.1 L (12.9-16.9) g/dL Hct 29.9 L (37.5-50.1) % Plt Count 76 L (140-400) K/mcL Neutrophils # 8.0 (1.6-8.9) K/mcL BMP 12/18/17 01:13 Sodium 131 L Potassium 4.0 Chloride 102 Carbon Dioxide 28 BUN 6 Creatinine 0.57 L Glucose 200 H Calcium 7.8 L - Impressions Impressions Ankle MRI 12/17/17 11:24 IMPRESSION: 1. No evidence of septic arthritis, osteomyelitis or abscess. 2. Nonspecific subcutaneous edema about the ankle and hindfoot. 3. Nonspecific diffuse intrinsic foot musculature edema. 4. Tiny partial thickness Achilles tendon tear. D/ / Lionel Barber MD / Lionel Barber MD Interpreting Provider: Lionel Barber MD Foot MRI 12/17/17 11:24 IMPRESSION: 1. No evidence of septic arthritis, osteomyelitis or abscess. 2. Nonspecific subcutaneous edema about the ankle and hindfoot. 3. Nonspecific diffuse intrinsic foot musculature edema. 4. Tiny partial thickness Achilles tendon tear. D/ / Linoel Barber MD / Lionel Barber MD Interpreting Provider: Lionel Barber MD - VTE Documentation of Mechanical Device: Venous foot pump, device Consult Discharge Plan - Plan Referrals: Woody Torres DO [Primary Care Provider] -
--- NOTE | 2017-12-18 17:08 | Podiatry Progress Note ---
Date of Encounter: 12/18/17 Time of Encounter: 16:30 - Assessment and Plan (1) Blister Current Visit: Yes Status: Acute (2) Cellulitis of right foot Current Visit: Yes Status: Acute Regression to cellulitis of right foot. Blister to the plantar aspect of the right heel. WBC: 10.6, Temp: 99.5 Right foot MRI completed on 12/17/17: No evidence of septic arthritis, osteomyelitis or abscess. Plan: Bedside debridement of blister to right heel: Verbal consent obtained, time out performed, blister cleansed with alcohol, small incision made to blister at the most dependent aspect, small amount of serosanguineous fluid drained, malodorous, wound cultures obtained, blister irrigated with saline, adaptic applied, 4x4 dry sterile gauze and kerlix. Will continue to monitor patient closely. Continue wound care daily. Keep pressure off of right heel. Will order heel medix boot. (3) Diabetes Current Visit: No Status: Chronic Qualifiers: Diabetes mellitus type: type 2 Diabetes mellitus ocean transportation intermediary insulin use: without custodial use Diabetes mellitus complication status: without complication Qualified Code(s): E11.9 - Type 2 diabetes mellitus without complications Subjective Principal diagnosis: Recurrent cellulitis right foot Interval history: Patient is lying in bed with sister at bedside. Patient states he has pain to the right foot. Patient had an MRI of the right foot on 12/17/17, no evidence of osteomyelitis, abscess, or fluid collection. No c/o fever, chills, n/v. Objective - Vital Signs Vital Signs: Vital Signs Temp Pulse Resp BP Pulse Ox 12/18/17 16:03 99.5 F 88 16 116/72 99 12/18/17 06:46 98.6 F 74 16 146/82 100 12/18/17 03:24 97.8 F 79 16 115/73 99 12/17/17 19:46 98.2 F 78 16 127/78 98 Intake and Output 12/18/17 12/18/17 12/18/17 07:59 15:59 23:59 Intake Total 0 / 0 350 / 350 Output Total 1400 / 1400 Balance -1400 / -1400 350 / 350 Intake: IV Fluids 350 / 350 Zosyn 3.375 GM In 0.9 % Sodium 100 / 100 Chloride (Mini-Bag +) 100 ML @ 25 mls/hr IVPB Q8H [facility] Rx#: [id number] Vancocin 1,250 MG In 0.9 % 250 / 250 Sodium Chloride 250 ML @ 166.67 mls/hr IVPB Q12H [facility] Rx#: [id number] Oral 0 / 0 Output: Urine 1400 / 1400 Other: Weight 76.1 kg Blood Glucose* 125 202 227 Patient Weight 12/18/17 23:59 Weight 76.1 kg - Exam Exam: General appearance: alert awake oriented X 3. Calm and pleasant, no acute distress.. Vascular: Right: Pedal pulses +2/4 DP/PT , No evidence of cyanosis, pallor or rubor, Edema graded at 1+/4, Skin Temperature warm, No calf pain with manual compression. capillary refill time is immediate to digits. Neurologic: Sensation intact with light touch to right foot. . Integument: Blister to the plantar aspect of the right heel measuring approximately 5 cm x 5 cm with periwound erythema. Localized cellulitis of the right lateral aspect of the Ankle. Erythema receding from outlined area. S/p rupture of blister with a #15 scalpel blade, small amount of serosanguineous drainage, malodorous, no pus. - Lab Result Diagrams: 12/18/17 01:13 12/18/17 01:13 Labs: Abnormal lab results RBC 3.35 M/mcL (4.19-5.50) L 12/18/17 01:13 Hgb 10.1 g/dL (12.9-16.9) L 12/18/17 01:13 Hct 29.9 % (37.5-50.1) L 12/18/17 01:13 Plt Count 76 K/mcL (140-400) L 12/18/17 01:13 ESR 37 mm/hr (0-10) H 12/15/17 17:09 Sodium 131 mEq/L (136-145) L 12/18/17 01:13 Creatinine 0.57 mg/dL (0.70-1.30) L 12/18/17 01:13 Glucose 200 mg/dL (70-105) H 12/18/17 01:13 POC Glucose 227 mg/dL (70-99) H 12/18/17 16:17 Calculated Osmolality 275 (280-300) L 12/18/17 01:13 Calcium 7.8 mg/dL (8.6-10.3) L 12/18/17 01:13 Magnesium 1.5 mg/dL (1.6-2.6) L 12/17/17 05:18 C-Reactive Protein 16 mg/L (Less than 10) H 12/15/17 17:09 - VTE Documentation of Mechanical Device: Venous foot pump, device Consult Discharge Plan - Plan Referrals: Woody Torres DO [Primary Care Provider] -
[2017-12-18] MEDS: Insulin DETEMIR 100 UNIT/ML X5UNITS SQ SCH (21:27)
[2017-12-19] MEDS: *HR* HYDROcodone/Acet 5/325 mg TABLET PO PRN ×2 (00:02→06:02)
[2017-12-19] MEDS: Piperacillin/Tazobactam 3.375 GM in 0.9 % Sodium Chloride Mini Bag 100 ML IVPB SCH ×3 (02:19→18:52)
[2017-12-19] MEDS: OXYCODONE Oral CONC 10 MG/0.5 ML ORAL.SYG SL PRN ×3 (02:19→20:22)
[2017-12-19 05:46] LABS: Mean Platelet Volume 11.2 fL (9.4-12.4); Segmented Neutrophils % 72.4 %
[2017-12-19 05:48] LABS: Basophils # 0.1 K/mcL (0.0-0.2); Basophils % 0.8 %; Eosinophils # 0.4 K/mcL (0.0-0.6); Eosinophils % 3.6 %; Hematocrit 30.3 % (37.5-50.1); Hemoglobin 10.2 g/dL (12.9-16.9); Immature Granulocytes % 0.8 % (0-4); Immature Platelets 3.8 % (1.1-6.1); Lymphocytes # 1.5 K/mcL (0.6-4.6); Lymphocytes % 14.2 %; Mean Corpuscular HGB Conc 33.7 g/dL (31.6-35.5); Mean Corpuscular Hemoglobin 30.1 pg (28.0-33.3); Mean Corpuscular Volume 89.4 fL (83.0-100.0); Monocytes # 0.9 K/mcL (0.0-1.3); Monocytes % 8.2 %; Neutrophils # 7.7 K/mcL (1.6-8.9); Red Blood Count 3.39 M/mcL (4.19-5.50); Red Cell Distribution Width 14.2 % (11.5-14.5)
[2017-12-19 05:51] LABS: Platelet Count 84 K/mcL (140-400)
[2017-12-19 06:00] LABS: BUN/Creatinine Ratio 10 (6-26); Blood Urea Nitrogen 6 mg/dL (6-20); Calcium 7.9 mg/dL (8.6-10.3); Carbon Dioxide 28 mEq/L (23-29); Chloride 105 mEq/L (98-107); Glucose 150 mg/dL (70-105); Osmolality,Calculated 278 (280-300); Potassium 3.8 mEq/L (3.5-5.1); Sodium 134 mEq/L (136-145); eGFR For African Americans > 60 (> 60); eGFR For Non-African Americans > 60 (> 60)
[2017-12-19] MEDS: *HR* Heparin 5,000 UNIT/ML VIAL SQ SCH ×2 (06:02→17:27)
[2017-12-19] MEDS: Insulin LISPRO 300 UNITS/3 ML VIAL SQ SCH ×4 (08:03→21:20)
[2017-12-19] MEDS: Potassium Chloride Elixir 20 MEQ/15 ML UDC PO SCH ×2 (08:05→20:20)
--- NOTE | 2017-12-19 08:24 | Internal Med Progress Note ---
Date of Encounter: 12/19/17 Time of Encounter: 08:22 - Assessment and plan (1) Foot abscess, right Current Visit: Yes Status: Acute Assessment and plan: Podiatry consulted; appreciate input. S/P I&D. Wound culture no growth to date. Continue IV vancomycin and IV zosyn. Consider transition to PO antibiotics per podiatry's recommendations. (2) Cellulitis of right foot Current Visit: Yes Status: Acute Assessment and plan: Management as per above. (3) Diabetes Current Visit: Yes Status: Chronic Assessment and plan: Continue accuchecks and SSI QID AC/HS. Continue levemir. 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 Recheck CBC in AM. (5) Cirrhosis Current Visit: Yes Status: Chronic Assessment and plan: Chronic issue. Keep outpatient follow up. Qualifiers: Qualified Code(s): K74.60 - Unspecified cirrhosis of liver (6) Hypokalemia Current Visit: Yes Status: Resolved Assessment and plan: Resolved. Recheck BMP in AM. (7) DVT prophylaxis Current Visit: Yes Status: Acute Assessment and plan: Continue SQ heparin. - Time Spent With Patient Total time spent is greater than 50% in coordination of care (as documented) at patient's floor/unit and/or counseling patient: less than 15 minutes - Subjective Interval history: Patient had no acute events overnight. He states that pain is well-controlled at this time. He denies fever, chills, chest pain, SOB, nausea, vomiting, and abdominal pain. He has no other complaints at this time. - Constitutional Vitals: Temp Pulse Resp BP Pulse Ox 98.0 F 83 14 132/78 100 12/19/17 06:55 12/19/17 06:55 12/19/17 06:55 12/19/17 06:55 12/19/17 06:55 General appearance: Present: cooperative, A&O X 3, pleasant, no acute distress, answers questions appropriately - Respiratory Respiratory exam: Present: CTAB. Absent: accessory muscle use, rales, rhonchi, wheezes Additional comments: Normal WOB - Cardiovascular Cardiovascular exam: Present: RRR, +S1, +S2. Absent: diastolic murmur, gallop, rubs, systolic murmur Additional comments: No BLE edema, unable to fully evaluate RLE due to bandaging - GI/Abdominal GI/Abdominal exam: Present: normal bowel sounds, soft. Absent: distended, hepatomegaly, mass, splenomegaly, tenderness - Extremities Exam Additional comments: RLE in bandaging, no visible edema - Psychiatric Psychiatric exam: Present: normal affect, normal mood. Absent: agitated, anxious, depressed - Skin Skin exam: Present: dry, warm. Absent: cyanosis Internal Medicine: Result - Labs CBC & Chem 7: 12/19/17 05:01 12/19/17 05:01 Labs: Short CBC 12/19/17 Range/Units 05:01 WBC 10.6 (4.3-11.1) K/mcL Hgb 10.2 L (12.9-16.9) g/dL Hct 30.3 L (37.5-50.1) % Plt Count 84 L (140-400) K/mcL Neutrophils # 7.7 (1.6-8.9) K/mcL BMP 12/19/17 05:01 Sodium 134 L Potassium 3.8 Chloride 105 Carbon Dioxide 28 BUN 6 Creatinine 0.59 L Glucose 150 H Calcium 7.9 L - Impressions Impressions Ankle MRI 12/17/17 11:24 IMPRESSION: 1. No evidence of septic arthritis, osteomyelitis or abscess. 2. Nonspecific subcutaneous edema about the ankle and hindfoot. 3. Nonspecific diffuse intrinsic foot musculature edema. 4. Tiny partial thickness Achilles tendon tear. D/ / 12/18/2017 11:47:20 Lionel Barber MD / bettie Interpreting Provider: Lionel Barber MD Foot MRI 12/17/17 11:24 IMPRESSION: 1. No evidence of septic arthritis, osteomyelitis or abscess. 2. Nonspecific subcutaneous edema about the ankle and hindfoot. 3. Nonspecific diffuse intrinsic foot musculature edema. 4. Tiny partial thickness Achilles tendon tear. D/ / 12/18/2017 11:47:20 Lionel Barber MD / bettie Interpreting Provider: Lionel Barber MD - VTE Documentation of Mechanical Device: Venous foot pump, device Consult Discharge Plan - Plan Referrals: Woody Torres DO [Primary Care Provider] -
[2017-12-19] MEDS: Ondansetron 4 MG/2 ML VIAL IVP PRN (09:14)
--- NOTE | 2017-12-19 17:28 | Podiatry Progress Note ---
Date of Encounter: 12/19/17 Time of Encounter: 12:30 - Assessment and Plan (1) Blister Current Visit: Yes Status: Acute (2) Cellulitis of right foot Current Visit: Yes Status: Acute Regression of cellulitis to right foot. S/p rupture of blister to the plantar aspect of the right heel on 12/18/17. Blister filled with serous fluid today, Verbal consent obtained, time out performed, blister cleansed with alcohol, small incision made to blister at the most dependent aspect from 4 O 'Clock to 8 O'clock , small amount of serous fluid drained, ruptured blister irrigated with saline, adaptic applied, 4x4 dry sterile gauze and kerlix. Base of blister with red granulation tissue, no necrosis. WBC: 10.6, Temp: 98.1 Right foot MRI completed on 12/17/17: No evidence of septic arthritis, osteomyelitis or abscess. Wound culture from ER showed no growth. Plan: Continue wound care daily. Keep pressure off of right heel. Continue heel medix boot while in bed. Please send wound cultures of right heel that were obtained and ordered yesterday. From a Podiatry standpoint patient okay to be discharged home with daily wound care. Cleanse right heel daily with mild soap and water, pat dry, apply adaptic , 4x4 dry sterile gauze and kerlix. Apply short cam boot for ambulation. Recommend transitioning to PO antibiotics upon discharge. Bactrim DS PO, BID x 10 days, Levaquin 500 mg PO, 1 tablet daily x 10 days. Follow up in wound care with Dr. Hernandez one week after discharge from hospital. Consulted with Dr. Hernandez and agreeable to plan of care. (3) Diabetes Current Visit: Yes Status: Chronic Qualifiers: Diabetes mellitus type: type 2 Diabetes mellitus snf insulin use: without snf use Diabetes mellitus complication status: without complication Qualified Code(s): E11.9 - Type 2 diabetes mellitus without complications Subjective Principal diagnosis: Recurrent cellulitis right foot Interval history: Patient is sitting up in bed with lunch tray. Patient states his pain has improved to the right foot. Patient had an MRI of the right foot on 12/17/17, no evidence of osteomyelitis, abscess, or fluid collection. No c/o fever, chills , n/v. S/p Bedside debridement of blister to right heel yesterday. Objective - Vital Signs Vital Signs: Vital Signs Temp Pulse Resp BP Pulse Ox 12/19/17 14:33 98.1 F 73 16 121/70 95 12/19/17 10:51 97.7 F 77 15 125/73 100 12/19/17 06:55 98.0 F 83 14 132/78 100 12/19/17 04:23 98.4 F 79 16 105/64 99 12/18/17 19:32 98.5 F 85 14 109/67 96 Intake and Output 12/19/17 12/19/17 12/19/17 07:59 15:59 23:59 Intake Total 0 / 0 260 / 260 Output Total 1150 / 1150 475 / 475 Balance -1150 / -1150 -215 / -215 Intake: IV Fluids 200 / 200 Zosyn 3.375 GM In 0.9 % Sodium 200 / 200 Chloride (Mini-Bag +) 100 ML @ 25 mls/hr IVPB Q8H [facility] Rx#: [id number] Oral 0 / 0 60 / 60 Output: Urine 1150 / 1150 475 / 475 Other: Meal Lunch Percent of Meal Consumed 20% Weight 76.1 kg Blood Glucose* 130 128 313 Patient Weight 12/19/17 23:59 Weight 76.1 kg - Exam Exam: General appearance: alert awake oriented X 3. Calm and pleasant, no acute distress.. Vascular: Right: Pedal pulses +2/4 DP/PT , No evidence of cyanosis, pallor or rubor, Edema graded at 1+/4, Skin Temperature warm, No calf pain with manual compression. capillary refill time is immediate to digits. Neurologic: Sensation intact with light touch to right foot. . Integument: Blister to the plantar aspect of the right heel measuring approximately 5 cm x 5 cm with periwound erythema. Localized cellulitis of the right lateral aspect of the Ankle. Erythema receding from outlined area. S/p rupture of blister with a #15 scalpel blade, small amount of serous drainage, no odor, no pus. Wound bed of blister with beefy red tissue, no necrosis. Incision: Present: healing - Lab Result Diagrams: 12/19/17 05:01 12/19/17 05:01 Labs: Abnormal lab results RBC 3.39 M/mcL (4.19-5.50) L 06/26/18 05:01 Hgb 10.2 g/dL (12.9-16.9) L 12/19/17 05:01 Hct 30.3 % (37.5-50.1) L 12/19/17 05:01 Plt Count 84 K/mcL (140-400) L 12/19/17 05:01 ESR 37 mm/hr (0-10) H 12/15/17 17:09 Sodium 134 mEq/L (136-145) L 12/19/17 05:01 Creatinine 0.59 mg/dL (0.70-1.30) L 12/19/17 05:01 Glucose 150 mg/dL (70-105) H 12/19/17 05:01 POC Glucose 313 mg/dL (70-99) H 12/19/17 16:08 Calculated Osmolality 278 (280-300) L 12/19/17 05:01 Calcium 7.9 mg/dL (8.6-10.3) L 12/19/17 05:01 Magnesium 1.5 mg/dL (1.6-2.6) L 12/17/17 05:18 C-Reactive Protein 16 mg/L (Less than 10) H 12/15/17 17:09 Microbiology, Last 48 Hours 12/18/17 17:00 Gram Stain - Final Right Foot - VTE Documentation of Mechanical Device: Venous foot pump, device Consult Discharge Plan - Plan Referrals: Woody Torres DO [Primary Care Provider] -
[2017-12-19] MEDS: Insulin DETEMIR 100 UNIT/ML X5UNITS SQ SCH (20:18)
[2017-12-20] MEDS: Ondansetron 4 MG/2 ML VIAL IVP PRN (02:30)
[2017-12-20] MEDS: Piperacillin/Tazobactam 3.375 GM in 0.9 % Sodium Chloride Mini Bag 100 ML IVPB SCH ×2 (02:30→10:24)
[2017-12-20] MEDS: OXYCODONE Oral CONC 10 MG/0.5 ML ORAL.SYG SL PRN (05:32)
[2017-12-20] MEDS: *HR* Heparin 5,000 UNIT/ML VIAL SQ SCH (05:33)
[2017-12-20 06:18] LABS: Basophils % 0.7 %; Eosinophils % 2.9 %
[2017-12-20 06:20] LABS: Basophils # 0.1 K/mcL (0.0-0.2); Eosinophils # 0.3 K/mcL (0.0-0.6); Hematocrit 32.7 % (37.5-50.1); Hemoglobin 11.1 g/dL (12.9-16.9); Immature Granulocytes % 0.7 % (0-4); Immature Platelets 2.7 % (1.1-6.1); Lymphocytes # 1.2 K/mcL (0.6-4.6); Lymphocytes % 11.2 %; Mean Corpuscular HGB Conc 33.9 g/dL (31.6-35.5); Mean Corpuscular Hemoglobin 30.9 pg (28.0-33.3); Mean Corpuscular Volume 91.1 fL (83.0-100.0); Mean Platelet Volume 10.4 fL (9.4-12.4); Monocytes # 0.9 K/mcL (0.0-1.3); Monocytes % 8.2 %; Red Blood Count 3.59 M/mcL (4.19-5.50); Red Cell Distribution Width 14.1 % (11.5-14.5); Segmented Neutrophils % 76.3 %
[2017-12-20 06:35] LABS: BUN/Creatinine Ratio 13 (6-26); Blood Urea Nitrogen 9 mg/dL (6-20); Calcium 8.3 mg/dL (8.6-10.3); Carbon Dioxide 26 mEq/L (23-29); Chloride 107 mEq/L (98-107); Glucose 108 mg/dL (70-105); Neutrophils # 8.4 K/mcL (1.6-8.9); Osmolality,Calculated 283 (280-300); Platelet Count 86 K/mcL (140-400); Potassium 3.8 mEq/L (3.5-5.1); Sodium 137 mEq/L (136-145); eGFR For African Americans > 60 (> 60); eGFR For Non-African Americans > 60 (> 60)
[2017-12-20] MEDS: Insulin LISPRO 300 UNITS/3 ML VIAL SQ SCH ×2 (08:27→12:41)
[2017-12-20] MEDS: Potassium Chloride Elixir 20 MEQ/15 ML UDC PO SCH (08:27)
[2017-12-20] MEDS ORDERED: *HR* LORazepam 2 MG/ML VIAL IVP STA (08:59)
[2017-12-20] MEDS ORDERED: *HR* Promethazine 25 MG/ML VIAL IM STA (08:59)
--- NOTE | 2017-12-20 09:05 | Discharge Summary ---
- NOTES TO OUTPATIENT PROVIDER Notes to Outpatient Provider: Follow up with PCP in 2-3 days after discharge. Recheck BMP and CBC at that time. Follow up on hospital wound cultures and adjust antibiotics accordingly. Follow up in wound care with Dr. Hernandez in 1 week after discharge. 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 Slade is a 57 year old male admitted for RLE blister/abscess and cellulitis. He was admitted to general medical floor. He was started on IV vancomycin and IV zosyn. Podiatry was consulted. I&D was performed of right heel blister/abscess. MRI of RLE showed no evidence of septic arthritis or osteomyelitis. Wound culture is pending. He will be discharged home with 10 day course of levaquin and bactrim DS per podiatry. He will follow up with PCP in 2-3 days after discharge. BMP and CBC can be rechecked at that time. Hospital wound cultures can be followed up on at that time, and antibiotics can be adjusted accordingly. He will follow up in wound care with Dr. Hernandez in 1 week after discharge. Patient has met maximum benefit of this hospitalization and will be discharged home in stable condition. Discharge discussed with: patient, nurse, other (Pharmacist) - Time Spent with Patient Total time spent providing and/or coordinating discharge services: Greater than 30 minutes - Discharge Medications Prescriptions: Levofloxacin [Levaquin] 750 mg PO DAILY 10 Days #10 tablet Sulfamethoxazole/Trimeth DS [Bactrim DS] 1 each PO Q12H 10 Days #20 tablet Home Medications: Insulin ASPART [Novolog Flexpen] 10 unit SQ TIDWM 07/25/16 [History] Insulin Glargine,Hum.rec.anlog [Basaglar Kwikpen U-100] 30 unit SQ QAM 12/15/17 [History] Levofloxacin [Levaquin] 750 mg PO DAILY 10 Days #10 tablet 12/20/17 [Rx] Sulfamethoxazole/Trimeth DS [Bactrim DS] 1 each PO Q12H 10 Days #20 tablet 12/20 [Rx] Allergies/Adverse Reactions: 3 Allergy/AdvReac Type Severity Reaction Status Date / Time No Known Allergies Allergy Verified 12/15/17 19:24 Date of admission: 12/15/17 19:57 Primary care physician: Woody Torres DO Consults: Podiatry Discharging clinician: Conner Turner Anticipated date of discharge: 12/20/17 - Constitutional Vitals: Temp Pulse Resp BP Pulse Ox 97.9 F 76 14 116/67 98 12/20/17 07:16 12/20/17 07:16 12/20/17 07:16 12/20/17 07:16 12/20/17 07:16 General appearance: Present: cooperative, A&O X 3, pleasant, no acute distress, answers questions appropriately - Respiratory Respiratory exam: Present: CTAB. Absent: accessory muscle use, rales, rhonchi, wheezes Additional comments: Normal WOB - Cardiovascular Cardiovascular exam: Present: RRR, +S1, +S2. Absent: diastolic murmur, gallop, rubs, systolic murmur Additional comments: No LLE edema, RLE in bandaging and boot - GI/Abdominal GI/Abdominal exam: Present: normal bowel sounds, soft. Absent: distended, hepatomegaly, mass, splenomegaly, tenderness - Extremities Exam Additional comments: RLE in bandaging and boot, good capillary refill of RLE digits, no visible erythema/edema or TTP - Psychiatric Psychiatric exam: Present: normal affect, normal mood. Absent: agitated, anxious, depressed - Skin Skin exam: Present: dry, intact, warm. Absent: cyanosis, rash - Patient Status Disposition: Home, Self-Care Condition: Good Overall status at discharge: patient is progressing back to baseline - Discharge Instructions Follow Up With: Woody Torres DO [Primary Care Provider] - Additional Instructions: Keep pressure off of right heel. Continue heel medix boot while in bed. Perform daily wound care. Cleanse right heel daily with mild soap and water, pat dry, apply adaptic, 4x4 dry sterile gauze and kerlix. Apply short cam boot for ambulation. Follow up with PCP in 2-3 days after discharge. Recheck BMP and CBC at that time. Follow up on hospital wound cultures and adjust antibiotics accordingly. Follow up in wound care with Dr. Hernandez in 1 week after discharge. - Diet and Activity Activity: other (Per podiatry: keep pressure off right heel, heel medix boot while in bed, and short cam boot for ambulation.) Diet: diabetic diet
[2017-12-20 11:20] VITALS: BP 130/78
--- NOTE | 2017-12-20 11:52 | Podiatry Progress Note ---
Date of Encounter: 12/20/17 Time of Encounter: 11:00 - Assessment and Plan (1) Blister Current Visit: Yes Status: Acute (2) Cellulitis of right foot Current Visit: Yes Status: Acute Regression of cellulitis to right foot. S/p rupture of blister to the plantar aspect of the right heel on 12/18/17. Significant improvement to right heel noted today. WBC: 11.0, Temp: 97.9 Right foot MRI completed on 12/17/17: No evidence of septic arthritis, osteomyelitis or abscess. Wound culture from ER showed no growth. Plan: Continue wound care daily. Dressing changed at bedside. Keep pressure off of right heel. Continue heel medix boot while in bed. From a Podiatry standpoint patient okay to be discharged home with daily wound care. Cleanse right heel daily with mild soap and water, pat dry, apply adaptic , 4x4 dry sterile gauze and kerlix. Apply short cam boot for ambulation. Recommend transitioning to PO antibiotics upon discharge. Bactrim DS PO, BID x 10 days, Levaquin 500 mg PO, 1 tablet daily x 10 days. Follow up with Dr. Hernandez in Podiatry clinic one week after discharge from hospital. Consulted with Dr. Hernandez and agreeable to plan of care. (3) Diabetes Current Visit: Yes Status: Chronic Qualifiers: Diabetes mellitus type: type 2 Diabetes mellitus superintendent terminal insulin use: without superintendent terminal use Diabetes mellitus complication status: without complication Qualified Code(s): E11.9 - Type 2 diabetes mellitus without complications Subjective Principal diagnosis: Recurrent cellulitis right foot Interval history: Patient is lying in bed with mother at bedside. Patient states his pain has improved to the right foot. Patient had an MRI of the right foot on 12/17/17, no evidence of osteomyelitis, abscess, or fluid collection. No c/o fever, chills , n/v. S/p Bedside debridement of blister to right heel yesterday. Patient admits to nausea and states he received Phenergan this morning. Objective - Vital Signs Vital Signs: Vital Signs Temp Pulse Resp BP Pulse Ox 12/20/17 11:17 97.5 F L 71 14 130/78 97 12/20/17 07:16 97.9 F 76 14 116/67 98 12/20/17 04:28 98.8 F 79 14 106/62 98 12/19/17 19:42 98.0 F 82 16 100/62 99 12/19/17 14:33 98.1 F 73 16 121/70 95 Intake and Output 12/19/17 12/20/17 12/20/17 23:59 07:59 15:59 Intake Total 350 / 350 100 / 100 0 / 0 Output Total 360 / 360 1050 / 1050 0 / 0 Balance -10 / -10 -950 / -950 0 / 0 Intake: IV Fluids 350 / 350 100 / 100 Zosyn 3.375 GM In 0.9 % Sodium 100 / 100 100 / 100 Chloride (Mini-Bag +) 100 ML @ 25 mls/hr IVPB Q8H [facility] Rx#: [id number] Vancocin 1,500 MG In 0.9 % 250 / 250 Sodium Chloride 250 ML @ 166.67 mls/hr IVPB Q12H [facility] Rx#: [id number] Oral 0 / 0 0 / 0 0 / 0 Output: Urine 300 / 300 1050 / 1050 0 / 0 Emesis 60 / 60 Other: Weight 76 kg Blood Glucose* [phone] Patient Weight 12/20/17 23:59 Weight 76 kg - Exam Exam: General appearance: alert awake oriented X 3. Calm and pleasant, no acute distress.. Vascular: Right: Pedal pulses +2/4 DP/PT , No evidence of cyanosis, pallor or rubor, Edema graded at 1+/4, Skin Temperature warm, No calf pain with manual compression. capillary refill time is immediate to digits. Neurologic: Sensation intact with light touch to right foot. . Integument: Ruptured Blister to the plantar aspect of the right heel measuring approximately 5 cm x 5 cm with light periwound erythema. Localized cellulitis of the right lateral aspect of the Ankle. Erythema receding from outlined area. Wound bed of blister with beefy red tissue, no necrosis, no pus, no odor , no streaking. Small amount of serous drainage observed to dressing. - Lab Result Diagrams: 12/20/17 05:54 12/20/17 05:54 Labs: Abnormal lab results RBC 3.59 M/mcL (4.19-5.50) L 12/20/17 05:54 Hgb 11.1 g/dL (12.9-16.9) L 12/20/17 05:54 Hct 32.7 % (37.5-50.1) L 12/20/17 05:54 Plt Count 86 K/mcL (140-400) L 12/20/17 05:54 ESR 37 mm/hr (0-10) H 12/15/17 17:09 Glucose 108 mg/dL (70-105) H 12/20/17 05:54 POC Glucose 109 mg/dL (70-99) H 12/20/17 11:14 Calcium 8.3 mg/dL (8.6-10.3) L 12/20/17 05:54 Magnesium 1.5 mg/dL (1.6-2.6) L 12/17/17 05:18 C-Reactive Protein 16 mg/L (Less than 10) H 12/15/17 17:09 Microbiology, Last 48 Hours 12/18/17 17:00 Gram Stain - Final Right Foot - VTE Documentation of Mechanical Device: Venous foot pump, device Consult Discharge Plan - Plan Additional Instructions: Keep pressure off of right heel. Continue heel medix boot while in bed. Perform daily wound care. Cleanse right heel daily with mild soap and water, pat dry, apply adaptic, 4x4 dry sterile gauze and kerlix. Apply short cam boot for ambulation. Follow up with PCP in 2-3 days after discharge. Recheck BMP and CBC at that time. Follow up on hospital wound cultures and adjust antibiotics accordingly. Follow up in wound care with Dr. Hernandez in 1 week after discharge. Referrals: Woody Torres DO [Primary Care Provider] - 12/25/17 11:00 am Prescriptions: Levofloxacin [Levaquin] 750 mg PO DAILY 10 Days #10 tablet Sulfamethoxazole/Trimeth DS [Bactrim DS] 1 each PO Q12H 10 Days #20 tablet
[2017-12-20] MEDS ORDERED: Aminoglycoside Consult 1 EACH MC ONE (15:49)
== END 2017-12-20 15:50 | disposition home or self-care (01) | DRG 364 ==
LOC: 3ANU 16:07 → EMEROO 16:07 → 3ANU 20:46
PROVIDERS: ADMIT Internal Medicine; ATTEND Internal Medicine

== ENCOUNTER 2020-07-31 19:46 | Observation (INO) ==
[2020-07-31 20:42] LABS: Bilirubin,Urine Negative (Negative); Blood,Urine Small (Negative); Clarity,Urine Clear (Clear); Color,Urine Light-Yellow (Yellow); Glucose,Urine (UA) 30 mg/dL (Normal); Hyaline Casts,Urine Few per lpf (None Seen); Ketones,Urine Negative (Negative); Leukocyte Esterase,Urine Negative (Negative); Mucus,Urine Few per lpf (None-Few); Nitrite,Urine Negative (Negative); PH,Urine 5.5 pH Units (5.0-8.0); Protein,Urine Negative (Neg-Trace); RBC,Urine 0-3 per hpf (0-3); Specific Gravity,Urine 1.011 (1.010-1.025); Squamous Epithelial Cell,Urine Few per hpf (None-Few); Urobilinogen,Urine Normal (Normal); WBC,Urine 0-3 per hpf (0-3)
[2020-07-31 21:29] LABS: Basophils % 0.4 %; Hemoglobin 9.2 g/dL (12.9-16.9)
[2020-07-31 21:29] LABS: VBG HCO3 25 mEq/L (21-27); VBG PCO2 42 mmHg (41-51); VBG PH 7.39 pH Units (7.32-7.42); VBG PO2 59 mmHg (25-50)
[2020-07-31 21:31] LABS: Eosinophils % 0.8 %; Immature Granulocytes % 0.6 % (0-4); Immature Platelets 3.8 % (1.1-6.1); Lymphocytes # 0.2 K/mcL (0.6-4.6); Lymphocytes % 4.7 %; Mean Corpuscular HGB Conc 34.1 g/dL (31.6-35.5); Mean Corpuscular Hemoglobin 31.1 pg (28.0-33.3); Mean Corpuscular Volume 91.2 fL (83.0-100.0); Mean Platelet Volume 10.7 fL (9.4-12.4); Monocytes # 0.6 K/mcL (0.0-1.3); Neutrophils # 4.2 K/mcL (1.6-8.9); Platelet Count 48 K/mcL (140-400); Red Blood Count 2.96 M/mcL (4.19-5.50); Segmented Neutrophils % 82.5 %; White Blood Count 5.1 K/mcL (4.3-11.1)
[2020-07-31 21:33] LABS: INR 1.2; Prothrombin Time 13.3 Seconds (9.4-12.1)
[2020-07-31 21:55] LABS: Alanine Aminotransferase 73 Units/L (7-52); Albumin 2.5 g/dL (3.5-5.7); Albumin/Globulin Ratio 0.6 (1.1-2.2); Alkaline Phosphatase 114 Units/L (34-104); Aspartate Amino Transferase 84 Units/L (13-39); BUN/Creatinine Ratio 26 (6-26); Bilirubin,Direct 0.4 mg/dL (0.0-0.2); Bilirubin,Indirect 0.5 mg/dL (0.0-1.0); Bilirubin,Total 0.9 mg/dL (0.3-1.0); Blood Urea Nitrogen 25 mg/dL (6-20); Carbon Dioxide 24 mEq/L (23-29); Chloride 101 mEq/L (98-107); Globulin 4.1 g/dL (2.4-3.5); Glucose 277 mg/dL (70-105); Lipase 48 Units/L (11-82); Magnesium 1.6 mg/dL (1.6-2.6); Osmolality,Calculated 286 (280-300); Potassium 3.7 mEq/L (3.5-5.1); Sodium 131 mEq/L (136-145); Total Protein 6.6 g/dL (6.4-8.9); Troponin I < 0.03 ng/mL (< 0.04); eGFR For African Americans > 60 (> 60); eGFR For Non-African Americans > 60 (> 60)
[2020-08-01] MEDS ORDERED: Naloxone 0.4 MG/ML INJ IVP PRN (01:08)
[2020-08-01] MEDS ORDERED: Ondansetron 4 MG/2 ML VIAL IVP PRN (01:08)
[2020-08-01] MEDS ORDERED: Acetaminophen 325 MG TABLET PO PRN (01:08)
[2020-08-01] MEDS ORDERED: *HR* OxyCODONE Immed Rel 5 MG TABLET PO PRN (01:11)
[2020-08-01] MEDS ORDERED: Dextrose Gel 15 GM/37.5 ML TUBE PO PRN ×2 (01:12)
[2020-08-01] MEDS ORDERED: *HR* Dextrose 50 % in Water (Vial) 50 ML VIAL IVP PRN (01:12)
[2020-08-01] MEDS ORDERED: D5% in Water 1,000 ML IVC PRN (01:12)
[2020-08-01 02:16] LABS: Basophils % 0.4 %; Hemoglobin 9.1 g/dL (12.9-16.9); Red Cell Distribution Width 13.9 % (11.5-14.5)
[2020-08-01 02:18] LABS: Eosinophils # 0.1 K/mcL (0.0-0.6); Eosinophils % 1.3 %; Immature Granulocytes % 0.5 % (0-4); Immature Platelets 3.9 % (1.1-6.1); Lymphocytes # 0.4 K/mcL (0.6-4.6); Lymphocytes % 6.8 %; Mean Corpuscular HGB Conc 33.7 g/dL (31.6-35.5); Mean Corpuscular Hemoglobin 30.4 pg (28.0-33.3); Mean Corpuscular Volume 90.3 fL (83.0-100.0); Mean Platelet Volume 10.9 fL (9.4-12.4); Monocytes # 0.7 K/mcL (0.0-1.3); Monocytes % 11.8 %; Neutrophils # 4.4 K/mcL (1.6-8.9); Red Blood Count 2.99 M/mcL (4.19-5.50); Segmented Neutrophils % 79.2 %; White Blood Count 5.6 K/mcL (4.3-11.1)
[2020-08-01 02:19] LABS: INR 1.2; Platelet Count 46 K/mcL (140-400); Prothrombin Time 13.6 Seconds (9.4-12.1)
[2020-08-01 02:34] LABS: Alanine Aminotransferase 67 Units/L (7-52); Albumin 2.4 g/dL (3.5-5.7); Albumin/Globulin Ratio 0.6 (1.1-2.2); Alkaline Phosphatase 113 Units/L (34-104); Aspartate Amino Transferase 78 Units/L (13-39); BUN/Creatinine Ratio 29 (6-26); Bilirubin,Total 0.9 mg/dL (0.3-1.0); Blood Urea Nitrogen 25 mg/dL (6-20); Calcium 7.9 mg/dL (8.6-10.3); Carbon Dioxide 26 mEq/L (23-29); Chloride 103 mEq/L (98-107); Chol/HDL Ratio 4.5 (0-4.9); Cholesterol 134 mg/dL (< 200); Globulin 3.8 g/dL (2.4-3.5); Glucose 199 mg/dL (70-105); HDL Cholesterol 30 mg/dL (40-59); LDL Cholesterol,Calculated 90 mg/dL (< 100); Magnesium 1.7 mg/dL (1.6-2.6); Osmolality,Calculated 286 (280-300); Phosphorous 2.1 mg/dL (2.7-4.5); Potassium 3.9 mEq/L (3.5-5.1); Sodium 133 mEq/L (136-145); Total Protein 6.2 g/dL (6.4-8.9); Triglycerides 70 mg/dL (< 150); eGFR For African Americans > 60 (> 60); eGFR For Non-African Americans > 60 (> 60)
[2020-08-01] MEDS ORDERED: Lactulose Oral Soln 20 GM/30 ML UDC PO ONE (03:12)
[2020-08-01] MEDS ORDERED: Insulin LISPRO 300 UNITS/3 ML VIAL SUBQ SCH (06:00)
[2020-08-01 07:23] VITALS: BP 105/68
[2020-08-01] MEDS ORDERED: Potassium Phosphate 44 MEQ in 0.9 % Sodium Chloride 250 ML IVPB ONE (07:53)
[2020-08-01] MEDS ORDERED: Insulin DETEMIR 100 UNIT/ML X5UNITS SUBQ SCH (09:00)
[2020-08-01] MEDS ORDERED: Torsemide 20 MG TABLET PO SCH (09:00)
[2020-08-01] MEDS ORDERED: Gabapentin 300 MG CAPSULE PO SCH (09:00)
== END 2020-08-01 08:49 | disposition short-term general hospital (02) ==
LOC: EMEROOARM 19:46 → 2ANU 19:46 → SUATTDRO 08-01 00:47 → 2ANU 08-01 01:30
PROVIDERS: ADMIT Internal Medicine; ATTEND Internal Medicine